=== PATIENT | male | born 1955 | race Caucasian/White ===

== ENCOUNTER 2022-07-27 13:52 | Inpatient (IN) | payer MEDICARE, MEDICAID ==
[2022-07-27] MEDS ORDERED: fentaNYL (PF) 50 MCG/ML 2 ML AMP IM STA (14:22)
[2022-07-27] MEDS ORDERED: DEXAMETHASONE SOD PHOSPHATE 10 MG/ML 1 ML VIAL IM STA (14:22)
--- NOTE | 2022-07-27 14:26 | ED ---
General Adult HPI <Papito Mantilla - Last Filed: 07/28/22 23:05> - General Source: patient, RN notes reviewed, old records reviewed Mode of arrival: EMS Limitations: no limitations - History of Present Illness -: month(s) (6) Location: left, right, lower extremity Radiation: distal Severity scale (1-10): 9 Quality: constant Consistency: constant Improves with: rest Worsens with: other (walking ) Associated Symptoms: denies other symptoms Treatments Prior to Arrival: other (Neurontin ) <Ramu Dozier - Last Filed: 08/05/22 08:04> - General Chief complaint: Extremity Problem,Nontraumatic Stated complaint: Neuropathy Time Seen by Provider: 07/27/22 14:08 - History of Present Illness Initial comments: A nontoxic appearing 67-year-old male presents via EMS with complaints of chronic bilateral lower extremity pain from neuropathy. Diagnosed with neuropathy 5 months ago and sees Dr. Flores in [facility]. He was prescribed Neurontin and Powell at that time which he states is not helping. Patient states he is also having suicidal thoughts and has no way to get home. States that if he is discharged he will just walk out in front of a car. He states he's overdosed 3 times as suicide attemp. Last attempt was 2 years ago. (Ramu Dozier) - Related Data Home Medications Medication Instructions Recorded Confirmed Albuterol Sulfate [Albuterol 2 puff PO RT-Q6H PRN 07/27/22 07/27/22 Sulfate Hfa] Apixaban [Eliquis] 5 mg PO BID 07/27/22 07/27/22 Atorvastatin [Lipitor] 40 mg PO HS 07/27/22 07/27/22 Cholestyramine/Aspartame 4 gm PO BID PRN 07/27/22 07/27/22 [Cholestyramine Light Packet] Furosemide [Lasix] 40 mg PO DAILY PRN 07/27/22 07/27/22 Gabapentin [Neurontin] 400 mg PO TID 07/27/22 07/27/22 HYDROcodone/APAP 5-325MG [[place] 1 tab PO Q8H PRN 07/27/22 07/27/22 5-325] Nitroglycerin Sl Tabs [Nitrostat] 0.4 mg SUBLINGUAL Q5M PRN 07/27/22 07/27/22 QUEtiapine FUMARATE [SEROquel] 200 mg PO HS 07/27/22 07/27/22 Tamsulosin HCl [Flomax] 0.4 mg PO HS 07/27/22 07/27/22 amLODIPine [Norvasc] 5 mg PO DAILY 07/27/22 07/27/22 carvediloL [Coreg] 6.25 mg PO BID 07/27/22 07/27/22 dilTIAZem HCL 30 mg PO TID 07/27/22 07/27/22 lisinopriL [Zestril] 2.5 mg PO DAILY 07/27/22 07/27/22 metOLazone [Zaroxolyn] 5 mg PO DAILY 07/27/22 07/27/22 Allergies Allergy/AdvReac Type Severity Reaction Status Date / Time sulfamethoxazole Allergy Swelling Verified 07/27/22 16:26 [From Bactrim] trimethoprim [From Bactrim] Allergy Swelling Verified 07/27/22 16:26 lithium AdvReac Severe Unknown Verified 08/04/22 13:55 bees Allergy Unknown Uncoded 07/27/22 16:26 Review of Systems ROS Other: All systems not noted in ROS Statement are negative. <Papito Mantilla - Last Filed: 07/28/22 23:05> ROS Other: All systems not noted in ROS Statement are negative. <Ramu Dozier - Last Filed: 08/05/22 08:04> ROS Statement: Those systems with pertinent positive or pertinent negative responses have been documented in the HPI. Past Medical History Past Medical History: Chest Pain / Angina, Heart Failure, COPD, CVA/TIA, Memory Impairment History of Any Multi-Drug Resistant Organisms: None Reported Past Surgical History: Heart Catheterization With Stent Past Psychological History: No Psychological Hx Reported Smoking Status: Current every day smoker Past Alcohol Use History: Rare Past Drug Use History: None Reported <Ramu Dozier - Last Filed: 08/05/22 08:04> General Exam Limitations: no limitations General appearance: alert, in no apparent distress Head exam: Present: atraumatic Eye exam: Absent: scleral icterus, conjunctival injection, periorbital swelling ENT exam: Present: mucous membranes moist Neck exam: Present: full ROM. Absent: tenderness, meningismus Respiratory exam: Present: normal lung sounds bilaterally. Absent: respiratory distress, accessory muscle use Cardiovascular Exam: Present: regular rate GI/Abdominal exam: Present: soft. Absent: distended, tenderness, rigid Extremities exam: Present: full ROM, normal capillary refill. Absent: tenderness, pedal edema, calf tenderness Back exam: Absent: tenderness, CVA tenderness (R), CVA tenderness (L) Neurological exam: Present: alert, oriented X3 Psychiatric exam: Present: depressed, suicidal ideation Skin exam: Present: warm, dry. Absent: cyanosis, diaphoretic, pallor <Riske,Ramu - Last Filed: 08/05/22 08:04> Course Vital Signs 07/27/22 07/27/22 07/27/22 14:01 22:02 23:26 Temperature 98 F Pulse Rate 94 85 98 Respiratory 18 18 18 Rate Blood Pressure 119/98 122/96 123/90 O2 Sat by Pulse 98 99 97 Oximetry 07/28/22 07/28/22 07/28/22 08:00 15:51 20:43 Temperature 97.7 F 97.4 F L 97.2 F L Pulse Rate 74 83 77 Respiratory 19 18 18 Rate Blood Pressure 117/77 103/73 117/81 O2 Sat by Pulse 95 96 97 Oximetry 07/29/22 07/29/22 07/29/22 01:29 03:19 04:05 Temperature Pulse Rate Respiratory 16 16 16 Rate Blood Pressure O2 Sat by Pulse Oximetry 07/29/22 07/29/22 07/29/22 05:05 08:44 10:00 Temperature 97.8 F Pulse Rate 75 99 Respiratory 16 18 20 Rate Blood Pressure 107/71 134/75 O2 Sat by Pulse 96 96 Oximetry 07/29/22 07/29/22 07/29/22 10:36 10:46 16:09 Temperature 97.7 F Pulse Rate 77 82 72 Respiratory 18 Rate Blood Pressure 106/68 O2 Sat by Pulse 97 Oximetry 07/29/22 07/29/22 07/30/22 18:10 21:07 07:17 Temperature Pulse Rate 75 70 Respiratory 18 18 18 Rate Blood Pressure 106/68 109/70 O2 Sat by Pulse 96 95 Oximetry 07/30/22 07/30/22 07/30/22 08:48 10:00 12:00 Temperature 97.6 F Pulse Rate 80 Respiratory 18 18 18 Rate Blood Pressure 104/71 O2 Sat by Pulse 96 Oximetry 07/30/22 07/30/22 07/30/22 13:00 14:30 15:47 Temperature 98.5 F Pulse Rate 72 Respiratory 18 18 18 Rate Blood Pressure 96/63 O2 Sat by Pulse 95 Oximetry 07/30/22 07/30/22 07/30/22 16:08 17:30 18:57 Temperature Pulse Rate Respiratory 18 18 18 Rate Blood Pressure 98/62 O2 Sat by Pulse Oximetry 07/30/22 07/30/22 07/30/22 20:00 21:00 22:00 Temperature 98.1 F Pulse Rate 77 Respiratory 16 16 16 Rate Blood Pressure 99/74 O2 Sat by Pulse 99 Oximetry 07/30/22 07/31/22 07/31/22 23:00 01:00 02:00 Temperature Pulse Rate Respiratory 16 16 16 Rate Blood Pressure O2 Sat by Pulse Oximetry 07/31/22 07/31/22 07/31/22 02:59 06:45 09:00 Temperature 98.4 F 97.8 F Pulse Rate 74 71 Respiratory 16 16 19 Rate Blood Pressure 114/71 105/64 O2 Sat by Pulse 97 95 Oximetry 07/31/22 08/01/22 08/01/22 20:00 04:15 10:27 Temperature 97.3 F L Pulse Rate 70 73 76 Respiratory 16 16 18 Rate Blood Pressure 104/69 98/67 104/72 O2 Sat by Pulse 94 L 97 96 Oximetry 08/01/22 12:14 Temperature Pulse Rate 65 Respiratory 18 Rate Blood Pressure 105/74 O2 Sat by Pulse 97 Oximetry Medical Decision Making - Lab Data Result diagrams: 07/28/22 19:16 07/28/22 19:16 <Papito Mantilla - Last Filed: 07/28/22 23:05> - Lab Data Result diagrams: 07/28/22 19:16 07/28/22 19:16 <Ramu Dozier - Last Filed: 08/05/22 08:04> - Medical Decision Making On 07/28/2022, the patient states that he developed some diffuse abdominal pain. He went into the bathroom and stuck his finger down his throat and this caused him to vomit. He denies any fevers or chills. He does have some mild nausea. He denies any diarrhea or constipation. His abdomen is only mildly tender upon palpation. There is no peritoneal signs. Abdomen is soft. The laboratory analysis ensued and this shows a mild leukocytosis. There is only minimal hyperkalemia. The computed tomography scan of the abdomen and pelvis shows diverticulosis but no evidence of diverticulitis. There may be a prominence of the adrenal gland. Overall, the exact cause of his abdominal pain is not definitively determined. He seemed to really like the morphine which was given IV and this did resolve all of his symptomatology. He is sleeping on recheck. It is still felt as though he is medically cleared for further evaluation by psychiatric team. No acute significant abdominal symptomatology is identified. There is no evidence of intra-abdominal pathology that would cause any reason to avoid further psychiatric treatment. (Papito Mantilla) Patient presents with chronic lower extremity pain, states is on Neurontin and Powell with no pain relief. He has had this pain for 5 years. Patient states he is also suicidal and if discharged will walk out in front of a car. EPS services to speak with patient. Dr. Mercer notified of patient. (Ramu Dozier) - Lab Data Lab Results 07/27/22 07/27/22 07/27/22 Range/Units 16:03 16:50 16:50 WBC 5.5 (3.8-10.6) k/uL RBC 4.44 (4.30-5.90) m/uL Hgb 14.5 (13.0-17.5) gm/dL Hct 43.3 (39.0-53.0) % MCV 97.7 (80.0-100.0) fL MCH 32.7 (25.0-35.0) pg MCHC 33.5 (31.0-37.0) g/dL RDW 13.6 (11.5-15.5) % Plt Count 151 (150-450) k/uL MPV 8.3 Neutrophils % 81 % Lymphocytes % 12 % Monocytes % 3 % Eosinophils % 3 % Basophils % 1 % Neutrophils # 4.4 (1.3-7.7) k/uL Lymphocytes # 0.7 L (1.0-4.8) k/uL Monocytes # 0.2 (0-1.0) k/uL Eosinophils # 0.2 (0-0.7) k/uL Basophils # 0.0 (0-0.2) k/uL Sodium (137-145) mmol/L Potassium (3.5-5.1) mmol/L Chloride (98-107) mmol/L Carbon Dioxide (22-30) mmol/L Anion Gap mmol/L BUN (9-20) mg/dL Creatinine (0.66-1.25) mg/dL Est GFR (CKD-EPI)AfAm (>60 ml/min/1.73 sqM) Est GFR (CKD-EPI)NonAf (>60 ml/min/1.73 sqM) Glucose (74-99) mg/dL Calcium (8.4-10.2) mg/dL Total Bilirubin (0.2-1.3) mg/dL AST (17-59) U/L ALT (4-49) U/L Alkaline Phosphatase (38-126) U/L Total Protein (6.3-8.2) g/dL Albumin (3.5-5.0) g/dL Lipase (23-300) U/L Urine Color Yellow Urine Appearance Clear (Clear) Urine pH 6.5 (5.0-8.0) Ur Specific [place] 1.012 (1.001-1.035) Urine Protein Negative (Negative) Urine Glucose (UA) Negative (Negative) Urine Ketones Negative (Negative) Urine Blood Negative (Negative) Urine Nitrite Negative (Negative) Urine Bilirubin Negative (Negative) Urine Urobilinogen 6.0 (<2.0) mg/dL Ur Leukocyte Esterase Negative (Negative) Urine Opiates Screen Not Detected (NotDetected) Ur Oxycodone Screen Not Detected (NotDetected) Urine Methadone Screen Not Detected (NotDetected) Ur Propoxyphene Screen Not Detected (NotDetected) Ur Barbiturates Screen Not Detected (NotDetected) U Tricyclic Antidepress Detected H (NotDetected) Ur Phencyclidine Scrn Not Detected (NotDetected) Ur Amphetamines Screen Not Detected (NotDetected) U Methamphetamines Scrn Not Detected (NotDetected) U Benzodiazepines Scrn Not Detected (NotDetected) Urine Cocaine Screen Not Detected (NotDetected) U Marijuana (THC) Screen Detected H (NotDetected) Coronavirus (PCR) Not Detected (Not Detectd) Influenza Type A (PCR) (Not Detectd) Influenza Type B (PCR) (Not Detectd) RSV (PCR) (Not Detectd) SARS-CoV-2 (PCR) (Not Detectd) 07/27/22 07/28/22 07/28/22 Range/Units 16:50 19:16 19:16 WBC 14.1 H (3.8-10.6) k/uL RBC 4.92 (4.30-5.90) m/uL Hgb 15.9 (13.0-17.5) gm/dL Hct 47.2 (39.0-53.0) % MCV 95.8 (80.0-100.0) fL MCH 32.3 (25.0-35.0) pg MCHC 33.7 (31.0-37.0) g/dL RDW 13.7 (11.5-15.5) % Plt Count 195 (150-450) k/uL MPV 8.6 Neutrophils % 86 % Lymphocytes % 9 % Monocytes % 3 % Eosinophils % 1 % Basophils % 0 % Neutrophils # 12.1 H (1.3-7.7) k/uL Lymphocytes # 1.3 (1.0-4.8) k/uL Monocytes # 0.5 (0-1.0) k/uL Eosinophils # 0.2 (0-0.7) k/uL Basophils # 0.0 (0-0.2) k/uL Sodium 138 136 L (137-145) mmol/L Potassium 4.5 5.3 H (3.5-5.1) mmol/L Chloride 109 H 106 (98-107) mmol/L Carbon Dioxide 21 L 19 L (22-30) mmol/L Anion Gap 8 11 mmol/L BUN 7 L 12 (9-20) mg/dL Creatinine 0.77 0.77 (0.66-1.25) mg/dL Est GFR (CKD-EPI)AfAm >90 >90 (>60 ml/min/1.73 sqM) Est GFR (CKD-EPI)NonAf >90 >90 (>60 ml/min/1.73 sqM) Glucose 191 H 125 H (74-99) mg/dL Calcium 9.0 9.4 (8.4-10.2) mg/dL Total Bilirubin 0.7 0.9 (0.2-1.3) mg/dL AST 60 H 49 (17-59) U/L ALT 68 H 66 H (4-49) U/L Alkaline Phosphatase 101 103 (38-126) U/L Total Protein 7.1 8.5 H (6.3-8.2) g/dL Albumin 3.8 4.6 (3.5-5.0) g/dL Lipase 60 (23-300) U/L Urine Color Urine Appearance (Clear) Urine pH (5.0-8.0) Ur Specific [place] (1.001-1.035) Urine Protein (Negative) Urine Glucose (UA) (Negative) Urine Ketones (Negative) Urine Blood (Negative) Urine Nitrite (Negative) Urine Bilirubin (Negative) Urine Urobilinogen (<2.0) mg/dL Ur Leukocyte Esterase (Negative) Urine Opiates Screen (NotDetected) Ur Oxycodone Screen (NotDetected) Urine Methadone Screen (NotDetected) Ur Propoxyphene Screen (NotDetected) Ur Barbiturates Screen (NotDetected) U Tricyclic Antidepress (NotDetected) Ur Phencyclidine Scrn (NotDetected) Ur Amphetamines Screen (NotDetected) U Methamphetamines Scrn (NotDetected) U Benzodiazepines Scrn (NotDetected) Urine Cocaine Screen (NotDetected) U Marijuana (THC) Screen (NotDetected) Coronavirus (PCR) (Not Detectd) Influenza Type A (PCR) (Not Detectd) Influenza Type B (PCR) (Not Detectd) RSV (PCR) (Not Detectd) SARS-CoV-2 (PCR) (Not Detectd) 07/29/22 07/29/22 Range/Units 08:53 10:02 WBC (3.8-10.6) k/uL RBC (4.30-5.90) m/uL Hgb (13.0-17.5) gm/dL Hct (39.0-53.0) % MCV (80.0-100.0) fL MCH (25.0-35.0) pg MCHC (31.0-37.0) g/dL RDW (11.5-15.5) % Plt Count (150-450) k/uL MPV Neutrophils % % Lymphocytes % % Monocytes % % Eosinophils % % Basophils % % Neutrophils # (1.3-7.7) k/uL Lymphocytes # (1.0-4.8) k/uL Monocytes # (0-1.0) k/uL Eosinophils # (0-0.7) k/uL Basophils # (0-0.2) k/uL Sodium (137-145) mmol/L Potassium (3.5-5.1) mmol/L Chloride (98-107) mmol/L Carbon Dioxide (22-30) mmol/L Anion Gap mmol/L BUN (9-20) mg/dL Creatinine (0.66-1.25) mg/dL Est GFR (CKD-EPI)AfAm (>60 ml/min/1.73 sqM) Est GFR (CKD-EPI)NonAf (>60 ml/min/1.73 sqM) Glucose (74-99) mg/dL Calcium (8.4-10.2) mg/dL Total Bilirubin (0.2-1.3) mg/dL AST (17-59) U/L ALT (4-49) U/L Alkaline Phosphatase (38-126) U/L Total Protein (6.3-8.2) g/dL Albumin (3.5-5.0) g/dL Lipase (23-300) U/L Urine Color Light Yellow Urine Appearance Clear (Clear) Urine pH 5.5 (5.0-8.0) Ur Specific [place] 1.010 (1.001-1.035) Urine Protein Negative (Negative) Urine Glucose (UA) Negative (Negative) Urine Ketones Negative (Negative) Urine Blood Negative (Negative) Urine Nitrite Negative (Negative) Urine Bilirubin Negative (Negative) Urine Urobilinogen <2.0 (<2.0) mg/dL Ur Leukocyte Esterase Negative (Negative) Urine Opiates Screen (NotDetected) Ur Oxycodone Screen (NotDetected) Urine Methadone Screen (NotDetected) Ur Propoxyphene Screen (NotDetected) Ur Barbiturates Screen (NotDetected) U Tricyclic Antidepress (NotDetected) Ur Phencyclidine Scrn (NotDetected) Ur Amphetamines Screen (NotDetected) U Methamphetamines Scrn (NotDetected) U Benzodiazepines Scrn (NotDetected) Urine Cocaine Screen (NotDetected) U Marijuana (THC) Screen (NotDetected) Coronavirus (PCR) (Not Detectd) Influenza Type A (PCR) Not Detected (Not Detectd) Influenza Type B (PCR) Not Detected (Not Detectd) RSV (PCR) Not Detected (Not Detectd) SARS-CoV-2 (PCR) Not Detected (Not Detectd) Disposition <Papito Mantilla - Last Filed: 07/28/22 23:05> Is patient prescribed a controlled substance at d/c from ED?: No Decision Date: 07/27/22 Decision Time: 18:00 <Ramu Dozier - Last Filed: 08/05/22 08:04> Clinical Impression: Suicidal ideation, Abdominal pain Disposition: OTHER INSTITUTION NOT DEFINED
[2022-07-27 17:32] LABS: Basophils % (A) 1 %; Eosinophils # (A) 0.2 k/uL (0-0.7); Eosinophils % (A) 3 %; HCT 43.3 % (39.0-53.0); HGB 14.5 gm/dL (13.0-17.5); Lymphocytes # (A) 0.7 k/uL (1.0-4.8); Lymphocytes % (A) 12 %; MCH 32.7 pg (25.0-35.0); MCHC 33.5 g/dL (31.0-37.0); MCV 97.7 fL (80.0-100.0); Mean Platelet Volume 8.3; Monocytes # (A) 0.2 k/uL (0-1.0); Monocytes % (A) 3 %; Neutrophils # (A) 4.4 k/uL (1.3-7.7); Neutrophils % (A) 81 %; Platelet Count 151 k/uL (150-450); RBC 4.44 m/uL (4.30-5.90); RDW 13.6 % (11.5-15.5); WBC 5.5 k/uL (3.8-10.6)
[2022-07-27 17:40] LABS: ALT 68 U/L (4-49); AST 60 U/L (17-59); African American GFR (CKD) >90 (>60 ml/min/1.73 sqM); Albumin 3.8 g/dL (3.5-5.0); Alkaline Phosphatase 101 U/L (38-126); Anion Gap 8 mmol/L; Blood Urea Nitrogen 7 mg/dL (9-20); Carbon Dioxide 21 mmol/L (22-30); Chloride 109 mmol/L (98-107); Glucose 191 mg/dL (74-99); Non-African American GFR(CKD) >90 (>60 ml/min/1.73 sqM); Potassium 4.5 mmol/L (3.5-5.1); Sodium 138 mmol/L (137-145); Total Bilirubin 0.7 mg/dL (0.2-1.3); Total Protein 7.1 g/dL (6.3-8.2)
[2022-07-27 17:47] LABS: Appearance,Urine Clear (Clear); Bilirubin,Urine Negative (Negative); Blood,Urine Negative (Negative); Color,Urine Yellow; Glucose,Urine (UA) Negative (Negative); Ketones,Urine Negative (Negative); Leukocyte Esterase,Urine Negative (Negative); Nitrite,Urine Negative (Negative); PH, Urine 6.5 (5.0-8.0); Protein,Urine Negative (Negative); Specific Gravity,Urine 1.012 (1.001-1.035)
[2022-07-27 18:01] LABS: Amphetamine Screen,Urine Not Detected (NotDetected); Barbiturate Screen,Urine Not Detected (NotDetected); Benzodiazepines Screen,Urine Not Detected (NotDetected); Cocaine Screen,Urine Not Detected (NotDetected); Methadone Screen, Urine Not Detected (NotDetected); Opiate Screen,Urine Not Detected (NotDetected); Oxycodone Screen, Urine Not Detected (NotDetected); Phencyclidine Screen,Urine Not Detected (NotDetected); Tricyclic Antidepressant,Urine Detected (NotDetected); Urn Cannabinoid Scrn Detected (NotDetected)
[2022-07-27] MEDS ORDERED: FUROSEMIDE 40 MG TAB PO PRN (18:07)
[2022-07-27] MEDS ORDERED: ALBUTEROL NEBULIZED 2.5 MG/3 ML INHALATION PRN (18:07)
[2022-07-27] MEDS: APIXABAN 5 MG TAB PO SCH (22:11)
[2022-07-27] MEDS: HYDROcodone/APAP 5-325MG 1 EACH TAB PO PRN (22:12)
[2022-07-27] MEDS: TAMSULOSIN 0.4 MG CAP.ER.24H PO SCH (22:13)
[2022-07-27] MEDS: QUEtiapine 200 MG TAB PO SCH (22:13)
[2022-07-27] MEDS: GABAPENTIN 400 MG CAP PO SCH (22:14)
[2022-07-27] MEDS: ATORVASTATIN 40 MG TAB PO SCH (22:15)
[2022-07-27] MEDS: carvediloL 6.25 MG TAB PO SCH (22:15)
[2022-07-27] MEDS: DILTIAZEM ORAL 30 MG TAB PO SCH (22:15)
[2022-07-28] MEDS: HYDROcodone/APAP 5-325MG 1 EACH TAB PO PRN ×2 (06:19→16:41)
[2022-07-28] MEDS: carvediloL 6.25 MG TAB PO SCH ×2 (07:28→18:56)
[2022-07-28] MEDS: amLODIPine 5 MG TAB PO SCH (08:32)
[2022-07-28] MEDS: DILTIAZEM ORAL 30 MG TAB PO SCH ×3 (08:33→20:44)
[2022-07-28] MEDS: GABAPENTIN 400 MG CAP PO SCH ×3 (08:33→20:44)
[2022-07-28] MEDS: APIXABAN 5 MG TAB PO SCH ×2 (08:33→20:44)
[2022-07-28] MEDS: metOLazone 5 MG TAB PO SCH (08:33)
[2022-07-28] MEDS ORDERED: SODIUM CHLORIDE 0.9% 1,000 ML IV STA ×2 (18:36)
[2022-07-28] MEDS ORDERED: ONDANSETRON 4 MG/2 ML VIAL IVP STA (18:36)
[2022-07-28] MEDS ORDERED: MORPHINE SULFATE 4 MG/ML SYRINGE IV STA (18:37)
[2022-07-28 19:24] LABS: Basophils % (A) 0 %; Eosinophils # (A) 0.2 k/uL (0-0.7); Eosinophils % (A) 1 %; HCT 47.2 % (39.0-53.0); HGB 15.9 gm/dL (13.0-17.5); Lymphocytes # (A) 1.3 k/uL (1.0-4.8); Lymphocytes % (A) 9 %; MCH 32.3 pg (25.0-35.0); MCHC 33.7 g/dL (31.0-37.0); MCV 95.8 fL (80.0-100.0); Mean Platelet Volume 8.6; Monocytes # (A) 0.5 k/uL (0-1.0); Monocytes % (A) 3 %; Neutrophils # (A) 12.1 k/uL (1.3-7.7); Neutrophils % (A) 86 %; Platelet Count 195 k/uL (150-450); RBC 4.92 m/uL (4.30-5.90); RDW 13.7 % (11.5-15.5); WBC 14.1 k/uL (3.8-10.6)
[2022-07-28 19:33] LABS: ALT 66 U/L (4-49); AST 49 U/L (17-59); African American GFR (CKD) >90 (>60 ml/min/1.73 sqM); Albumin 4.6 g/dL (3.5-5.0); Alkaline Phosphatase 103 U/L (38-126); Anion Gap 11 mmol/L; Blood Urea Nitrogen 12 mg/dL (9-20); Calcium 9.4 mg/dL (8.4-10.2); Carbon Dioxide 19 mmol/L (22-30); Chloride 106 mmol/L (98-107); Glucose 125 mg/dL (74-99); Lipase 60 U/L (23-300); Non-African American GFR(CKD) >90 (>60 ml/min/1.73 sqM); Potassium 5.3 mmol/L (3.5-5.1); Sodium 136 mmol/L (137-145); Total Bilirubin 0.9 mg/dL (0.2-1.3); Total Protein 8.5 g/dL (6.3-8.2)
[2022-07-28] MEDS: ATORVASTATIN 40 MG TAB PO SCH (20:45)
[2022-07-28] MEDS: TAMSULOSIN 0.4 MG CAP.ER.24H PO SCH (20:45)
[2022-07-28] MEDS: QUEtiapine 200 MG TAB PO SCH (20:45)
--- NOTE | 2022-07-28 21:38 | CT ---
EXAMINATION TYPE: CT abdomen pelvis w con DATE OF EXAM: 07/28/2022 COMPARISON: . INDICATION: abdominal pain, acute, nonlocalized DLP: 1895.9 mGycm, Automated exposure control for dose reduction was used. CONTRAST: 100 mL of Isovue 300. Study performed without Oral Contrast TECHNIQUE: Axial images were obtained from above the diaphragm to the pubic rami in the axial plane a t 5 mm thick sections. Reconstructed images are reviewed on the computer in the coronal plane. FINDINGS: Limited CT sections are obtained the lung bases. Mild compressive atelectasis within the right lung base. CT ABDOMEN: Liver: Normal Spleen: Normal Pancreas: Atrophic Adrenal glands: Left adrenal gland is mildly prominent 1.5 cm. Gallbladder: Normal Kidneys: No masses are evident. No hydronephrosis is present. No cysts are present. Aorta: Vascular calcification is within the aorta. Inferior vena cava: Normal. CT PELVIS: Loops of bowel within the abdomen and pelvis are normal. The study is performed without oral cont rast limiting bowel evaluation. Scattered diverticuli within the proximal and mid sigmoid colon. No a djacent inflammatory change to suggest acute diverticulitis is evident. Appendix: Normal as visualized. Urinary bladder: Normal. Genitourinary structures: Prostate is prominent Osseous structures: No suspicious lytic or sclerotic lesions. IMPRESSIONS: 1. Diverticulosis without acute diverticulitis. 2. Mild prominence of left adrenal gland
[2022-07-29] MEDS ORDERED: CALCIUM CARBONATE 500 MG CHEWABLE PO ONE (04:35)
[2022-07-29] MEDS: HYDROcodone/APAP 5-325MG 1 EACH TAB PO PRN ×3 (04:37→23:15)
[2022-07-29] MEDS: APIXABAN 5 MG TAB PO SCH ×2 (08:47→21:05)
[2022-07-29] MEDS: GABAPENTIN 400 MG CAP PO SCH ×3 (08:47→21:05)
[2022-07-29] MEDS: carvediloL 6.25 MG TAB PO SCH ×2 (09:01→16:12)
[2022-07-29] MEDS: amLODIPine 5 MG TAB PO SCH (09:02)
[2022-07-29] MEDS: DILTIAZEM ORAL 30 MG TAB PO SCH ×3 (09:02→21:05)
[2022-07-29] MEDS: metOLazone 5 MG TAB PO SCH (09:02)
[2022-07-29 10:10] LABS: Appearance,Urine Clear (Clear); Bilirubin,Urine Negative (Negative); Blood,Urine Negative (Negative); Color,Urine Light Yellow; Glucose,Urine (UA) Negative (Negative); Ketones,Urine Negative (Negative); Leukocyte Esterase,Urine Negative (Negative); Nitrite,Urine Negative (Negative); PH, Urine 5.5 (5.0-8.0); Protein,Urine Negative (Negative); Urobilinogen,Urine <2.0 mg/dL (<2.0)
[2022-07-29] MEDS: QUEtiapine 200 MG TAB PO SCH (21:05)
[2022-07-29] MEDS: TAMSULOSIN 0.4 MG CAP.ER.24H PO SCH (21:05)
[2022-07-29] MEDS: ATORVASTATIN 40 MG TAB PO SCH (21:05)
[2022-07-30] MEDS ORDERED: ALBUTEROL NEBULIZED 2.5 MG/3 ML INHALATION PRN (08:00)
[2022-07-30] MEDS: DILTIAZEM ORAL 30 MG TAB PO SCH ×3 (08:50→21:31)
[2022-07-30] MEDS: carvediloL 6.25 MG TAB PO SCH ×4 (08:50→16:33)
[2022-07-30] MEDS: APIXABAN 5 MG TAB PO SCH ×2 (08:51→20:25)
[2022-07-30] MEDS: metOLazone 5 MG TAB PO SCH (08:51)
[2022-07-30] MEDS: GABAPENTIN 400 MG CAP PO SCH ×3 (08:51→21:31)
[2022-07-30] MEDS: HYDROcodone/APAP 5-325MG 1 EACH TAB PO PRN ×2 (08:52→16:11)
[2022-07-30] MEDS: amLODIPine 5 MG TAB PO SCH (08:55)
[2022-07-30] MEDS ORDERED: metOLazone 5 MG TAB PO SCH (09:00)
[2022-07-30] MEDS: ATORVASTATIN 40 MG TAB PO SCH (20:25)
[2022-07-30] MEDS: QUEtiapine 200 MG TAB PO SCH (20:25)
[2022-07-30] MEDS: TAMSULOSIN 0.4 MG CAP.ER.24H PO SCH (20:25)
[2022-07-31] MEDS: carvediloL 6.25 MG TAB PO SCH ×2 (06:53→17:38)
[2022-07-31] MEDS: amLODIPine 5 MG TAB PO SCH (09:45)
[2022-07-31] MEDS: GABAPENTIN 400 MG CAP PO SCH ×3 (09:45→21:31)
[2022-07-31] MEDS: HYDROcodone/APAP 5-325MG 1 EACH TAB PO PRN (09:46)
[2022-07-31] MEDS: APIXABAN 5 MG TAB PO SCH ×2 (09:46→21:32)
[2022-07-31] MEDS: DILTIAZEM ORAL 30 MG TAB PO SCH ×3 (09:47→21:36)
[2022-07-31] MEDS: metOLazone 5 MG TAB PO SCH (10:27)
[2022-07-31] MEDS: ATORVASTATIN 40 MG TAB PO SCH (21:34)
[2022-07-31] MEDS: QUEtiapine 200 MG TAB PO SCH (21:34)
[2022-07-31] MEDS: TAMSULOSIN 0.4 MG CAP.ER.24H PO SCH (21:34)
[2022-08-01] MEDS: HYDROcodone/APAP 5-325MG 1 EACH TAB PO PRN (10:36)
[2022-08-01] MEDS: carvediloL 6.25 MG TAB PO SCH ×2 (10:37→16:54)
[2022-08-01] MEDS: DILTIAZEM ORAL 30 MG TAB PO SCH ×2 (10:37→16:52)
[2022-08-01] MEDS: amLODIPine 5 MG TAB PO SCH (10:37)
[2022-08-01] MEDS: APIXABAN 5 MG TAB PO SCH ×2 (10:37→20:08)
[2022-08-01] MEDS: GABAPENTIN 400 MG CAP PO SCH ×3 (10:37→20:09)
[2022-08-01] MEDS: metOLazone 5 MG TAB PO SCH (10:39)
[2022-08-01] MEDS ORDERED: NITROGLYCERIN SL TABS 0.4 MG TAB SUBLINGUAL PRN (12:55)
[2022-08-01] MEDS ORDERED: CHOLESTYRAMINE (WITH SUGAR) 4 GM PACKET PO PRN (12:55)
[2022-08-01] MEDS ORDERED: LORazepam 1 MG TAB PO PRN (12:56)
[2022-08-01] MEDS ORDERED: MAGNESIUM HYDROXIDE 2,400 MG/10 ML CUP PO PRN (12:56)
[2022-08-01] MEDS ORDERED: ACETAMINOPHEN TAB 325 MG TAB PO PRN (12:56)
[2022-08-01] MEDS ORDERED: MAG HYDROX/AL HYDROX/SIMETH 30 ML CUP PO PRN (12:56)
[2022-08-01] MEDS ORDERED: LORazepam 2 MG/ML INJ IM PRN (12:57)
--- NOTE | 2022-08-01 14:51 | P.MDCNMH ---
History of Present Illness H&P Date: 08/01/22 Chief Complaint: med management Patient is a 67-year-old history of hypertension, dyslipidemia, neuropathy, atrial fibrillation on Eliquis, CHF, unsure EF presented for depression. He claims that he has been taking all his medications. He denies any chest pain, shortness of breath. He occasionally has orthopnea as well as lower extremity swelling. However, he has Lasix at home which he uses as needed. He is also complaining of some abdominal tenderness, and has experienced some nausea and vomiting over the last 4 days. He denies any diarrhea or constipation. He denies any urinary complaints. He drinks occasionally, smokes about 6 cigarettes a day, and uses cocaine occasionally. In the ED, his vital signs were within normal limits. He had a CT abdomen and pelvis which was negative for any acute process. It showed diverticulosis without diverticulitis, and mild prominence of the left adrenal gland. Initial laboratory workup was mostly negative except for bicarb of 21, mild transaminitis, urine tox positive for TCA and marijuana. Patient seen and examined at bedside. Pertinent positives and negatives as discussed in HPI, a complete review of systems was performed and all other systems are negative. Vital signs reviewed General: nontoxic, no distress, appears at stated age Derm: warm, dry Head: atraumatic, normocephalic, symmetric Eyes: EOMI, no lid lag, anicteric sclera, pupils equal round reactive to light ENT: Nose and ears atraumatic Neck: No thyromegaly, supple Mouth: no lip lesion, mucus membranes moist Cardiovascular: S1S2 reg, no murmur, no edema Lungs: clear to auscultation bilateral, no rhonchi, no rales, no wheeze, no accessory muscle use Abdominal: soft, nontender to palpation, no guarding, no appreciable organomegaly Ext: no gross muscle atrophy, muscle strength muscle strength 5 out of 5 in all 4 extremities, no contractures Neuro: CN II-XII grossly intact Psych: Alert, oriented, appropriate affect Assessment/Plan: Depression -Management per psychiatry Abdominal pain -Negative CT abdomen and pelvis -Continue to monitor vitals Leukocytosis -Likely reactive Polysubstance use Nicotine dependence -Counseled regarding cessation Chronic medical problems: CHF, unsure EF, not in exacerbation Hypertension Dyslipidemia Neuropathy Chronic Atrial fibrillation History of CAD -Continue home medications Thank you for allowing us to participate in the care of this pleasant patient. Do not hesitate to contact us with questions. Someone can be reached from the [facility] hospitalist group all hours of the day at [phone] or via [employer]. Past Medical History Past Medical History: Chest Pain / Angina, Heart Failure, CVA/TIA, Hyperlipidemia, Hypertension Additional Past Medical History / Comment(s): pt reports last CVA was in 2019. History of Any Multi-Drug Resistant Organisms: None Reported Past Surgical History: Coronary Bypass/CABG, Heart Catheterization With Stent, Pacemaker Additional Past Surgical History / Comment(s): pt reports pacemaker placed in 2019 and triple bypass in 2018 Past Anesthesia/Blood Transfusion Reactions: No Reported Reaction Date of Last Stent Placement:: 2014 Type of Cardiac Device: Permanent Pacemaker Device Placement Date:: 2019 Past Psychological History: Depression Smoking Status: Current every day smoker Past Alcohol Use History: Rare Past Drug Use History: Marijuana Additional Drug Use History / Comment(s): pt reports daily marijuana use - "all day, everyday." Medications and Allergies Home Medications Medication Instructions Recorded Confirmed Type Albuterol Sulfate [Albuterol 2 puff PO RT-Q6H PRN 07/27/22 07/27/22 History Sulfate Hfa] Apixaban [Eliquis] 5 mg PO BID 07/27/22 07/27/22 History Atorvastatin [Lipitor] 40 mg PO HS 07/27/22 07/27/22 History Cholestyramine/Aspartame 4 gm PO BID PRN 07/27/22 07/27/22 History [Cholestyramine Light Packet] Furosemide [Lasix] 40 mg PO DAILY PRN 07/27/22 07/27/22 History Gabapentin [Neurontin] 400 mg PO TID 07/27/22 07/27/22 History HYDROcodone/APAP 5-325MG [[place] 1 tab PO Q8H PRN 07/27/22 07/27/22 History 5-325] Nitroglycerin Sl Tabs [Nitrostat] 0.4 mg SUBLINGUAL Q5M PRN 07/27/22 07/27/22 History QUEtiapine FUMARATE [SEROquel] 200 mg PO HS 07/27/22 07/27/22 History Tamsulosin HCl [Flomax] 0.4 mg PO HS 07/27/22 07/27/22 History amLODIPine [Norvasc] 5 mg PO DAILY 07/27/22 07/27/22 History carvediloL [Coreg] 6.25 mg PO BID 07/27/22 07/27/22 History dilTIAZem HCL 30 mg PO TID 07/27/22 07/27/22 History lisinopriL [Zestril] 2.5 mg PO DAILY 07/27/22 07/27/22 History metOLazone [Zaroxolyn] 5 mg PO DAILY 07/27/22 07/27/22 History Allergies Allergy/AdvReac Type Severity Reaction Status Date / Time sulfamethoxazole Allergy Swelling Verified 07/27/22 16:26 [From Bactrim] trimethoprim [From Bactrim] Allergy Swelling Verified 07/27/22 16:26 bees Allergy Unknown Uncoded 07/27/22 16:26 Physical Exam Vitals: Vital Signs Temp Pulse Pulse Resp BP BP Pulse Ox 08/01/22 13:45 97.3 F L 71 22 99/66 98 08/01/22 12:14 65 18 105/74 97 08/01/22 10:27 76 18 104/72 96 08/01/22 04:15 97.3 F L 73 16 98/67 97 07/31/22 20:00 70 16 104/69 94 L Intake and Output 07/31/22 08/01/22 08/01/22 22:59 06:59 14:59 Other: Weight 109.458 kg Cranial Nerve Examination - Cranial Nerves Cranial Nerve II- Optic: Intact Cranial Nerve III- Oculomotor: Intact Cranial Nerve IV- Trochlear: Intact Cranial Nerve V- Trigeminal: Intact Cranial Nerve - Abducens: Intact Cranial Nerve VII- Facial: Intact Cranial Nerve VIII- Auditory: Intact Cranial Nerve IX- Glossopharyngeal: Intact Cranial Nerve X- Vagus: Intact Cranial Nerve XI- Accessory: Intact Cranial Nerve XII- Hypoglossal: Intact Results CBC & Chem 7: 07/28/22 19:16 07/28/22 19:16
[2022-08-01] MEDS: TAMSULOSIN 0.4 MG CAP.ER.24H PO SCH (20:08)
[2022-08-01] MEDS: ATORVASTATIN 40 MG TAB PO SCH (20:08)
[2022-08-01] MEDS: QUEtiapine 200 MG TAB PO SCH (20:08)
[2022-08-02] MEDS: DILTIAZEM ORAL 30 MG TAB PO SCH ×3 (00:03→16:47)
[2022-08-02] MEDS: HYDROcodone/APAP 5-325MG 1 EACH TAB PO PRN ×3 (00:14→19:58)
--- NOTE | 2022-08-02 00:43 | HP ---
HISTORY AND PHYSICAL IDENTIFYING DATA: The patient is a 67-year-old male, he resides with a housemate. He presented to the ED for evaluation. CHIEF COMPLAINT: The patient stated in the ED that he was suicidal. He had no way to get home and said that if he was discharged, he would walk out in front of a car. HISTORY OF PRESENTING ILLNESS: The patient was the primary source of information that only provided a limited amount of history about his current situation as well as past mental health issues. The patient states that currently he has been having increasing problems with depression. He was vague about particulars of that. He says he lives with another person, though it does not sound like the two of them have a cordial relationship. He says that the woman is 25 years younger. He says they have continuous conflicts about various issues around the house. He has been increasingly depressed in that situation, though also around the idea that he has had progressive problems with neuropathy that are making it difficult for him to even ambulate little own function in the way that he thinks he should be able to. He said that he has had a long history of where he works long hours and feels that he had been very productive in his life. He says he sees all of that as having gone away. He said that he has had a psychiatric hospitalization "a while ago." He did not give specifics. He indicated that he may have been diagnosed with bipolar disorder where he would have episodes of high energy, decreased need for sleep, and ability to function in a wide range of activities. 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 He said he would work from early in the morning to late at night and never had any problem with that. He also notes that he had legal issues with cocaine possession. He ended up serving 9 years in jail with his release in 1998. He states that he has not been using any cocaine or other hard drugs. He does not drink. He does say that he smokes marijuana quite a bit on a daily basis. He said, "that is about all I do is sit at home and smoke marijuana to relax myself." He notes that he sleeps poorly, though he is on Seroquel 200 mg a day. He says as long as he takes a Seroquel, he sleeps okay and if he does not take the Seroquel, he does not sleep at all. He states that he has had depressed mood with loss of motivation, energy, and interest. He does not identify any symptoms of psychosis, neither hallucinations nor delusions. He does not identify significant anxiety issues. He has not had problems with panic. When I asked him about past trauma or posttraumatic issues, he stated "there might be things out there, but it does not matter right now." In regard to psychotropic medications, he is on Seroquel 200 mg at bedtime. In addition, he said he has been taking Cymbalta. He thought he was taking 60 mg twice a day, though pharmacy records indicate that his last refill of Cymbalta was 05/26 when he received 30 tablets of Cymbalta 60 mg. He said he thought he was taking Cymbalta twice a day and thought he had been taking it up to the present, though said "maybe I'm not certain about that." He acknowledges a lot of distress with the main issue being his struggles with mobility from neuropathy. He is admitted for further evaluation. SUBSTANCE USE HISTORY: The patient has continuous and current use of marijuana. He has past substance use issues as noted above. PAST MEDICAL HISTORY: The patient's primary complaint currently is peripheral neuropathy. He has a history of angina, heart failure, COPD, CVA/TIA, and memory impairment. FAMILY AND SOCIAL HISTORY: The patient did not provide much information other than what is noted in the HPI. MENTAL STATUS EXAMINATION: The patient walks slowly from his room to the interview room. He walked with a cautious and constricted gait. He gave fair eye contact. He was somewhat restless. He answered questions with brief responses. His thoughts were clear, at times he tended to give vague responses. He did make some spontaneous comments and was somewhat interactive. His affect was anxious. His mood depressed. He was significantly distressed. There was no indication for thought disorder. He was not voicing thoughts of harm at the time of the interview and said he does not have any plans or intent with his being on the psychiatric unit. On cognitive exam, he was oriented and alert. He could give 2/3 objects in 4 minutes. He could give the days of the week in reverse order without difficulty. He knew the president and past president. He declined to answer any other questions in that regard. PHYSICAL EXAMINATION: As per medical consultation. ASSESSMENT: This 67-year-old male is diagnosed with major depression. He may have underlying bipolar disorder, though it was difficult to get a clear history from the patient to be able to clearly delineate bipolar disorder from depression. He does appear to have some significant psychosocial stressors. Social supports are uncertain and may be quite limited. DIAGNOSES: 1. Major depression, chronic and recurrent, severe, without psychotic features. 2. Rule out bipolar affect disorder. 3. Marijuana dependence. 4. History of heart failure. 5. Chronic obstructive pulmonary disease. 6. Cerebrovascular accident/transient ischemic attack. 7. Angina. 8. Peripheral neuropathy. RECOMMENDATIONS: The patient will be admitted for comprehensive medical, psychiatric and psychosocial evaluation. We will engage the patient in individual and group therapeutic activities. At this point, I will continue the patient on Cymbalta 60 mg a day. We discussed that there might be indications for titrating up. I also reviewed the issue that if he does have a diagnosis of bipolar disorder, we will need to monitor for concerns that an antidepressant may destabilize his bipolar condition. On the other hand, he also was on Seroquel which he says he takes for sleep, though he is on 200 mg a day, which is the indicated strengths for use of Seroquel for bipolar depression, thus Seroquel may be of benefit to help ameliorate any issues that could arise from an antidepressant in the phase of possible bipolar disorder. We do need to broaden our understanding in regard to psychosocial issues. I briefly reviewed medication issues with the patient, though kept it limited as the patient was not too inclined to engage in the conversation. We will focus on stabilization and discharge planning. MMODL / IJN: [id number] /
[2022-08-02] MEDS: APIXABAN 5 MG TAB PO SCH ×2 (07:59→20:00)
[2022-08-02] MEDS: metOLazone 5 MG TAB PO SCH (07:59)
[2022-08-02] MEDS: GABAPENTIN 400 MG CAP PO SCH ×3 (07:59→20:00)
[2022-08-02] MEDS: carvediloL 6.25 MG TAB PO SCH ×2 (07:59→16:42)
[2022-08-02] MEDS: amLODIPine 5 MG TAB PO SCH (07:59)
--- NOTE | 2022-08-02 13:03 | P.PN ---
Progress Note - Text Progress Note Date: 08/02/22 Interval History: Patient was seen sitting in his room on his bed and was directable and agreeable to speak with racebook writer. Patient appeared to have a depressed affect today. He was mildly irritable as well during conversation. He states that he feels that he is not getting the adequate help that he needs. He states that he has been feeling severely depressed and had not been started on medications for it. He claims that his sleep was "on and off" since coming into the hospital. He states that his appetite is also not great. He claims that he does not feel much motivation to go to groups however was encouraged to do so. He was agreeable to take the Cymbalta. He states that he has been dealing with significant amount of pain in his feet causing him to have difficulty ambulating. He states that he also feels mildly dizzy when he walks and we spoke about his blood pressure and need for possibly cutting down on medications. At this time patient denies any current suicidal or homical ideations, intent or plan. Patient denies any auditory, visual hallucinations and denies any paranoia or delusions. Patient denies any side effects from the medications and has been compliant with meds. Mental Status Exam: General Appearance: Patient appears to be tall, longer hair sena, stated age is alert, difficult to engage, uncooperative at times. Marginal hygiene. Behavior: Patient is calmly seated without any agitated behavior. Blunted. Speech: Patient's speech is fluent and nonpressured. [place] and monotone. Mood/Affect: Mood is depressed, affect is congruent and constricted. Suicidality/Homicidality: Patient denies having any suicidal or homicidal ideation intent or plan. Perceptions: Patient denies any visual hallucinations and denies any auditory hallucinations Though content/process: There is no evidence of any delusional thought content and thought process is linear and goal-directed. [place]. Vague. Memory and concentration: AOX3, grossly intact for the purposes of this session Judgment and insight: Poor Assessment Major depressive disorder, without psychotic features, rule out bipolar depression Cannabis use disorder mild Plan: -Patient continues to meet criteria for inpatient psychiatric admission for symptom stabilization and safety. Patient has signed adult voluntary form and was placed in patient's chart. -Medications: Continue with Seroquel 200 mg daily at bedtime for mood stabilization/insomnia, Cymbalta 30 mg daily for mood/anxiety/pain. -When necessary Ativan and Haldol for agitation/aggression. -NRT -not needed as patient does not smoke -SW on board for discharge planning. Encouraged the patient to participate in milieu. Patient currently wants to relocate to the area and go to a [facility], social work professor looking into this.
[2022-08-02] MEDS: DULoxetine HCL 30 MG CAPSULE.DR PO SCH (13:21)
[2022-08-02 16:26] LABS: Chol/HDL Ratio 2.03 Ratio
[2022-08-02] MEDS: DILTIAZEM ORAL 60 MG TAB PO SCH ×2 (16:42→19:59)
[2022-08-02] MEDS: ATORVASTATIN 40 MG TAB PO SCH (19:59)
[2022-08-02] MEDS: TAMSULOSIN 0.4 MG CAP.ER.24H PO SCH (19:59)
[2022-08-02] MEDS: QUEtiapine 200 MG TAB PO SCH (20:00)
[2022-08-03] MEDS: DULoxetine HCL 30 MG CAPSULE.DR PO SCH ×2 (07:56→20:34)
[2022-08-03] MEDS: GABAPENTIN 400 MG CAP PO SCH ×3 (07:56→20:36)
[2022-08-03] MEDS: amLODIPine 5 MG TAB PO SCH (07:56)
[2022-08-03] MEDS: APIXABAN 5 MG TAB PO SCH ×2 (07:56→20:34)
[2022-08-03] MEDS: carvediloL 6.25 MG TAB PO SCH ×2 (07:56→18:02)
[2022-08-03] MEDS: metOLazone 5 MG TAB PO SCH (07:57)
[2022-08-03] MEDS: HYDROcodone/APAP 5-325MG 1 EACH TAB PO PRN ×2 (07:58→15:04)
[2022-08-03] MEDS: DILTIAZEM ORAL 60 MG TAB PO SCH ×3 (07:59→20:34)
[2022-08-03] MEDS ORDERED: LORazepam 0.5 MG TAB PO PRN (11:20)
--- NOTE | 2022-08-03 11:23 | P.PN ---
Progress Note - Text Progress Note Date: 08/03/22 Interval History: Patient was seen wandering the hallways with a walker and was agreeable writer editor today. He continues to have a depressed affect and continues to ruminate on his depressive thoughts. He claims that he does not want to go back to his previous room and board due to his landlord that was renting out his room. He states that "she's too crazy" and was fairly vague about why he wants to stay in the area. He claims that "if I go to a [place] [facility] all just shoot myself". He cla ims that he has not thought much benefit from the medication at this point. He states that he was only able to sleep about 2 hours last night. He continues to state that he has pain in his feet and dizziness at times. His blood pressure continues to remain fairly low. We spoke about the medication options. He claims that he has a fair appetite. He has not been showing much interest in going to groups. Continues to endorse anxiety and depression. At this time patient denies any homical ideations, intent or plan. He does state that he has suicidal thoughts however no intent or plan. Patient denies any auditory, visual hallucinations and denies any paranoia or delusions. Patient denies any side effects from the medications and has been compliant with meds. Mental Status Exam: General Appearance: Patient appears to be tall, longer hair sena, stated age is alert, difficult to engage, more cooperative today. Marginal hygiene. Behavior: Patient is calmly seated without any agitated behavior. Blunted. Speech: Patient's speech is fluent and nonpressured. [place] and monotone. Mood/Affect: Mood is depressed, affect is congruent and constricted. Suicidality/Homicidality: Patient denies having any homicidal ideation intent or plan. He admits to suicidal thoughts, no intent or plan. Perceptions: Patient denies any visual hallucinations and denies any auditory hallucinations Though content/process: There is no evidence of any delusional thought content and thought process is linear and goal-directed. [place]. Vague. Memory and concentration: AOX3, grossly intact for the purposes of this session Judgment and insight: Poor, improving mildly. Assessment Major depressive disorder, without psychotic features, rule out bipolar depression Cannabis use disorder mild Plan: -Patient continues to meet criteria for inpatient psychiatric admission for symptom stabilization and safety. Patient has signed adult voluntary form and was placed in patient's chart. -Medications: Continue with Seroquel 200 mg daily at bedtime for mood stabilization/insomnia, increase Cymbalta 30 mg BID for mood/anxiety/pain. added remeron 15 mg qhs for mood/insomnia/appetite. -When necessary Ativan and Haldol for agitation/aggression. -NRT -not needed as patient does not smoke -SW on board for discharge planning. Encouraged the patient to participate in milieu. Patient currently wants to relocate to the area and go to a [facility] or room and board, social and political studies professor looking into this. likely discharge in 2-3 days.
[2022-08-03] MEDS: DILTIAZEM ORAL 30 MG TAB PO SCH (15:03)
[2022-08-03] MEDS: MIRTAZAPINE 15 MG TAB PO SCH (20:34)
[2022-08-03] MEDS: ATORVASTATIN 40 MG TAB PO SCH (20:34)
[2022-08-03] MEDS: TAMSULOSIN 0.4 MG CAP.ER.24H PO SCH (20:34)
[2022-08-03] MEDS: QUEtiapine 200 MG TAB PO SCH (20:34)
[2022-08-04] MEDS ORDERED: amLODIPine 2.5 MG TAB PO SCH (09:00)
[2022-08-04] MEDS: carvediloL 6.25 MG TAB PO SCH ×2 (10:02→17:54)
[2022-08-04] MEDS: DILTIAZEM ORAL 60 MG TAB PO SCH (10:03)
[2022-08-04] MEDS: APIXABAN 5 MG TAB PO SCH ×2 (10:03→21:08)
[2022-08-04] MEDS: metOLazone 5 MG TAB PO SCH (10:03)
[2022-08-04] MEDS: DULoxetine HCL 30 MG CAPSULE.DR PO SCH ×2 (10:03→21:08)
[2022-08-04] MEDS: HYDROcodone/APAP 5-325MG 1 EACH TAB PO PRN ×2 (10:04→21:07)
[2022-08-04] MEDS: GABAPENTIN 400 MG CAP PO SCH ×3 (10:04→21:08)
--- NOTE | 2022-08-04 12:06 | P.PN ---
Progress Note - Text Progress Note Date: 08/04/22 Interval History: Patient was seen sitting at the side of his bed today. He continues to have a depressed affect. He states that his mood is still "up and down". He claims that he was previously on lithium and asked if he could be on a mood stabilizer. Discussed the pros and cons of this and he claims that it helped him in the past and wanted to be restarted on it. He states that he is still having suicidal thoughts and was upset that the medical social worker was trying to help him and that he would go to a motel. He claims that he "don't want to live anymore" and continues to focus on his pain and his depression as well. He claims that he has nothing to live for. He states that he is not sleeping well at night as well. Gait claims of a mild improving appetite. He states that he is going to some groups however not finding that helpful. Continues to threaten suicide when he leaves the hospital stating "I just want to go somewhere to alone". At this time patient denies any homical ideations, intent or plan. patient denies any auditory, visual hallucinations and denies any paranoia or delusions. Patient denies any side effects from the medications and has been compliant with meds. Mental Status Exam: General Appearance: Patient appears to be tall, longer hair sena, stated age is alert, difficult to engage, argumentative today. Marginal hygiene. Behavior: Patient is calmly seated without any agitated behavior. Blunted. Speech: Patient's speech is fluent and nonpressured. [place], argumentative Mood/Affect: Mood is depressed, affect is congruent and constricted. Suicidality/Homicidality: Patient denies having any homicidal ideation intent or plan. He admits to suicidal thoughts, no intent or plan. Perceptions: Patient denies any visual hallucinations and denies any auditory hallucinations Though content/process: There is no evidence of any delusional thought content and thought process is linear and goal-directed. [place]. Vague. Argumentative Memory and concentration: AOX3, grossly intact for the purposes of this session Judgment and insight: Poor Assessment Major depressive disorder, without psychotic features, rule out bipolar depression Cannabis use disorder mild Plan: -Patient continues to meet criteria for inpatient psychiatric admission for symptom stabilization and safety. Patient has signed adult voluntary form and was placed in patient's chart. -Medications: Increase Seroquel 300 mg daily at bedtime for mood stabilizatio n/insomnia, Cymbalta 30 mg BID for mood/anxiety/pain. remeron 15 mg qhs for mood/insomnia/appetite. Added lithium under 50 mg twice a day for mood stabilization/suicidal thoughts. -When necessary Ativan and Haldol for agitation/aggression. -NRT -not needed as patient does not smoke -SW on board for discharge planning. Encouraged the patient to participate in milieu. Patient currently wants to relocate to the area and go to a [facility] or room and board vs low cost motel. medical social worker looking into this. likely discharge next week.
[2022-08-04] MEDS: LITHIUM CARBONATE 150 MG CAP PO SCH ×2 (15:02→21:09)
[2022-08-04] MEDS: DILTIAZEM ORAL 30 MG TAB PO SCH ×2 (16:17→21:09)
[2022-08-04] MEDS: QUEtiapine 100 MG TAB PO SCH (21:08)
[2022-08-04] MEDS: ATORVASTATIN 40 MG TAB PO SCH (21:08)
[2022-08-04] MEDS: MIRTAZAPINE 15 MG TAB PO SCH (21:08)
[2022-08-04] MEDS: TAMSULOSIN 0.4 MG CAP.ER.24H PO SCH (21:08)
[2022-08-05] MEDS: HYDROcodone/APAP 5-325MG 1 EACH TAB PO PRN ×2 (08:00→16:13)
[2022-08-05] MEDS: metOLazone 5 MG TAB PO SCH (08:01)
[2022-08-05] MEDS: LITHIUM CARBONATE 150 MG CAP PO SCH ×2 (08:01→20:38)
[2022-08-05] MEDS: APIXABAN 5 MG TAB PO SCH ×2 (08:01→20:37)
[2022-08-05] MEDS: DILTIAZEM ORAL 30 MG TAB PO SCH ×3 (08:01→20:38)
[2022-08-05] MEDS: carvediloL 6.25 MG TAB PO SCH ×2 (08:01→17:51)
[2022-08-05] MEDS: DULoxetine HCL 30 MG CAPSULE.DR PO SCH (08:01)
[2022-08-05] MEDS: GABAPENTIN 400 MG CAP PO SCH ×3 (08:01→20:37)
--- NOTE | 2022-08-05 12:07 | P.PN ---
Progress Note - Text Progress Note Date: 08/05/22 Interval History: Patient was seen sitting at the side of his bed today. Today patient appears to be mildly brighter in his affect. He states that he is doing "a bit better" compared to yesterday. He states that the lithium has been helping stabilize his mood and also states that he was able to sleep "a lot better" last night with the increase in Seroquel. He thanked copywriter for helping him. He continues to complain about his congestive heart failure and also his neuropathy in his legs. He spoke about a long history of cocaine abuse however has quit. She continues to be indecisive about where he wants to go upon discharge and not motivated. He was less focused on suicide at this time. Continues to state that he is feeling depressed however this has been improving. He is less argumentative and irritable today. Claims that she was upset at the social insurance analyst this morning because "she is telling me that I got 5 minutes to decide where I'm going to go and I didn't like that" and claims that he left the group early. At this time patient denies any homical ideations, intent or plan. patient denies any auditory, visual hallucinations and denies any paranoia or delusions. Patient denies any side effects from the medications and has been compliant with meds. Mental Status Exam: General Appearance: Patient appears to be tall, longer hair sena, stated age is alert, difficult to engage, less argumentative today. Marginal hygiene. Behavior: Patient is calmly seated without any agitated behavior. less argumentative. Speech: Patient's speech is fluent and nonpressured. [place], improving. Mood/Affect: Mood is depressed, improving mildly, affect is congruent Suicidality/Homicidality: Patient denies having any homicidal ideation intent or plan. He denies any suicidal thoughts, no intent or plan. Perceptions: Patient denies any visual hallucinations and denies any auditory hallucinations Though content/process: There is no evidence of any delusional thought content and thought process is linear and goal-directed. [place]. Vague. Memory and concentration: AOX3, grossly intact for the purposes of this session Judgment and insight: Poor, improving mildly Assessment Major depressive disorder, without psychotic features, rule out bipolar depression Cannabis use disorder mild Plan: -Patient continues to meet criteria for inpatient psychiatric admission for symptom stabilization and safety. Patient has signed adult voluntary form and was placed in patient's chart. -Medications: Seroquel 300 mg daily at bedtime for mood stabilization/insomnia, increase Cymbalta 30 mg daily + 60 mg qhs for mood/anxiety/pain. remeron 15 mg qhs for mood/insomnia/appetite. lithium 150 mg twice a day for mood stabilization/suicidal thoughts. -When necessary Ativan and Haldol for agitation/aggression. -NRT -not needed as patient does not smoke -SW on board for discharge planning. Encouraged the patient to participate in milieu. Patient currently wants to relocate to the area and go to a [facility]/room and board vs low cost motel. social insurance analyst looking into this and continuing to assist. likely discharge next week monday. patient will receive his SS check on Aug 09.
[2022-08-05] MEDS: QUEtiapine 100 MG TAB PO SCH (20:37)
[2022-08-05] MEDS: ATORVASTATIN 40 MG TAB PO SCH (20:37)
[2022-08-05] MEDS: DULoxetine HCL 60 MG CAPSULE.DR PO SCH (20:37)
[2022-08-05] MEDS: MIRTAZAPINE 15 MG TAB PO SCH (20:37)
[2022-08-05] MEDS: TAMSULOSIN 0.4 MG CAP.ER.24H PO SCH (20:37)
[2022-08-06] MEDS: metOLazone 5 MG TAB PO SCH (08:43)
[2022-08-06] MEDS: LITHIUM CARBONATE 150 MG CAP PO SCH ×2 (08:43→20:35)
[2022-08-06] MEDS: DULoxetine HCL 30 MG CAPSULE.DR PO SCH (08:43)
[2022-08-06] MEDS: DILTIAZEM ORAL 30 MG TAB PO SCH ×3 (08:43→20:34)
[2022-08-06] MEDS: carvediloL 6.25 MG TAB PO SCH ×2 (08:43→17:49)
[2022-08-06] MEDS: APIXABAN 5 MG TAB PO SCH ×2 (08:43→20:34)
[2022-08-06] MEDS: GABAPENTIN 400 MG CAP PO SCH ×4 (08:43→20:34)
[2022-08-06] MEDS: HYDROcodone/APAP 5-325MG 1 EACH TAB PO PRN ×2 (08:45→20:35)
--- NOTE | 2022-08-06 11:35 | P.PN ---
Subjective Progress Note Date: 08/06/22 Principal diagnosis: Bipolar mixed Interval History: Patient was seen in my office he was watching TV and got up and came and talked with me with no problem. He states that he is doing "a bit better" compared to yesterday, his main complaint is peripheral neuropathy. He also says that the Seroquel helps him get to sleep but seems to cause him to feel restless so when he wakes back up after 3 or 4 hours he has to get up and walk around.. 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 He says he is okay with God but just troubled with the loss of his and his health and with chronic pain. He says that he has been diagnosed with bipolar in the past. He says his brain is always racing but sometimes he'll take on 3 jobs at the same time and not bothered to sleep as he manages them. He says even though his depressed he has racing thoughts at this time. Mental Status Exam: Good eye contact reasonable response times General Appearance: Patient appears to be tall, longer hair sena, stated age is alert, difficult to engage, not argumentative today. Adequate hygiene. Behavior: Patient is calmly seated without any agitated behavior.. Speech: Patient's speech is fluent and nonpressured. Abstract and logical Mood/Affect: Mood is depressed, improving mildly, affect is congruent Suicidality/Homicidality: Patient denies having any homicidal ideation intent or plan. He denies any suicidal thoughts, no intent or plan. Perceptions: Patient denies any visual hallucinations and denies any auditory hallucinations and I did not see any evidence of him responding to voices he did not seem paranoid Though content/process: There is no evidence of any delusional thought content and thought process is linear and goal-directed. Vague. Memory and concentration: AOX3, grossly intact for the purposes of this session Judgment and insight: Poor, improving mildly Assessment Bipolar mixed Cannabis use disorder mild Plan: -Patient continues to meet criteria for inpatient psychiatric admission for symptom stabilization and safety. Patient has signed adult voluntary form and was placed in patient's chart. -Medications: Discontinue the Seroquel due to evident akathisia replaced with Zyprexa which should help with sleep help with racing thoughts throughout the day and not cause akathisia. I educated him on the benefits of Cymbalta in regards to ignoring pain and he was very positive about that information and seems to be tolerating the increase well. Continue Cymbalta 30 mg daily + 60 mg qhs for mood/anxiety/pain. Consider moving all the Cymbalta to the morning as it can make it hard to sleep but he does seem to fall asleep okay. Continue remeron 15 mg qhs for mood/insomnia/appetite. lithium 150 mg twice a day for mood stabilization/suicidal thoughts he is not reporting any excessive urination or shakiness that he had on it before but the dose is modest. -When necessary Ativan and Haldol for agitation/aggression. -NRT -not needed as patient does not smoke -SW on board for discharge planning. Encouraged the patient to participate in milieu. Patient currently wants to relocate to the area and go to a [facility]/room and board vs low cost motel. social welfare clerk looking into this and continuing to assist. likely discharge next week monday. patient will receive his SS check on Aug 09. Objective - Vital Signs Vital signs: Vital Signs Temp 97.9 F 08/06/22 06:30 Pulse 69 08/06/22 06:30 Resp 16 08/06/22 06:30 BP 119/71 08/06/22 06:30 Pulse Ox 97 08/06/22 06:30 FiO2 - Labs CBC & Chem 7: 07/28/22 19:16 07/28/22 19:16
[2022-08-06] MEDS: DULoxetine HCL 60 MG CAPSULE.DR PO SCH (20:34)
[2022-08-06] MEDS: ATORVASTATIN 40 MG TAB PO SCH (20:34)
[2022-08-06] MEDS: TAMSULOSIN 0.4 MG CAP.ER.24H PO SCH (20:34)
[2022-08-06] MEDS: MIRTAZAPINE 15 MG TAB PO SCH (20:35)
[2022-08-06] MEDS ORDERED: OLANZapine 10 MG TAB PO SCH (21:00)
[2022-08-07] MEDS: metOLazone 5 MG TAB PO SCH (08:24)
[2022-08-07] MEDS: DILTIAZEM ORAL 30 MG TAB PO SCH ×3 (08:24→20:11)
[2022-08-07] MEDS: GABAPENTIN 400 MG CAP PO SCH ×4 (08:25→20:07)
[2022-08-07] MEDS: APIXABAN 5 MG TAB PO SCH ×2 (08:25→20:08)
[2022-08-07] MEDS: LITHIUM CARBONATE 150 MG CAP PO SCH (08:25)
[2022-08-07] MEDS: DULoxetine HCL 30 MG CAPSULE.DR PO SCH (08:25)
[2022-08-07] MEDS: carvediloL 6.25 MG TAB PO SCH ×2 (08:25→17:51)
[2022-08-07] MEDS: HYDROcodone/APAP 5-325MG 1 EACH TAB PO PRN ×2 (08:26→17:52)
--- NOTE | 2022-08-07 14:19 | P.PN ---
Subjective Progress Note Date: 08/07/22 Principal diagnosis: Bipolar mixed Interval History: Subjective: Patient came and talked with me with no problem. He states that he is doing "a bit better" compared to yesterday, his main complaint is peripheral neuropathy. We stopped the Seroquel due to significant case of akathisia and tried 10 mg of olanzapine. First it did not work on sleep second it allowed us to uncover a significant case of tired eye dyskinesia mostly involved trusting of the tongue and is at about a 2+. The patient was aware of the movements of the tongue which he ascribed to dry lips. Although he has no teeth he has no pain in his mouth and other people have noticed him thrusting his tongue as well. He needs some sort of medicine for austyn but switching over to clozapine is a major shift he has done well on lithium although at too high a dose he did get some excess tremors. He feels the lower dose is helping some. He also was unable to sleep and would like something to help him sleep Objective: I ran an aims test which was significantly positive with thrusting of the tongue, and dancing movements of the legs is a she when he is concentrating. Mental Status Exam: Good eye contact reasonable response times General Appearance: Patient appears to be tall, longer sena hair, he appears his stated age, and is alert, he is pleasant. Adequate hygiene. He walks slowly with a walker Behavior: Patient is calmly seated without any agitated behavior.. Speech: Patient's speech is fluent and nonpressured. Abstract and logical Mood/Affect: Mood is depressed, improving mildly, affect is congruent Suicidality/Homicidality: Patient denies having any homicidal ideation intent or plan. He denies any suicidal thoughts, no intent or plan. Perceptions: Patient denies any visual hallucinations and denies any auditory hallucinations and I did not see any evidence of him responding to voices he did not seem paranoid Though content/process: There is no evidence of any delusional thought content and thought process is linear and goal-directed. Vague. Memory and concentration: AOX3, grossly intact for the purposes of this session Judgment and insight: Poor, improving mildly Assessment: Due to the significant tardive dyskinesia we really need to get him off of dopamine 2 blockers. Bipolar mixed Cannabis use disorder mild Plan: -Patient continues to meet criteria for inpatient psychiatric admission for symptom stabilization and safety. Patient has signed adult voluntary form and was placed in patient's chart. -Medications: We are going to discontinue the olanzapine as that will cause tardive dyskinesia to worsen even faster than Seroquel. We're going to increase the lithium to 300 twice a day in the hopes that that will protect against austyn and give him something for sleep along the line of Restoril as he has tried trazodone and melatonin without success. Continue Cymbalta 30 mg daily + 60 mg qhs for mood/anxiety/pain. Consider moving all the Cymbalta to the morning as it can make it hard to sleep but he does seem to fall asleep okay. Continue remeron 15 mg qhs for mood/insomnia/appetite. lithium 300 mg twice a day for mood stabilization/suicidal thoughts he is not reporting any excessive urination or shakiness that he had on it before but the dose is modest. -When necessary Ativan and Haldol for agitation/aggression. -NRT -not needed as patient does not smoke -SW on board for discharge planning. Encouraged the patient to participate in milieu. Patient currently wants to relocate to the area and go to a [facility]/room and board vs low cost motel. social service coordinator looking into this and continuing to assist. likely discharge next week monday. patient will receive his SS check on Aug 09. Objective - Vital Signs Vital signs: Vital Signs Temp 97.9 F 08/06/22 06:30 Pulse 78 08/07/22 08:24 Resp 16 08/06/22 06:30 BP 125/75 08/07/22 08:24 Pulse Ox 97 08/06/22 06:30 FiO2 - Labs CBC & Chem 7: 07/28/22 19:16 07/28/22 19:16
[2022-08-07] MEDS: LITHIUM CARBONATE 300 MG CAP PO SCH (20:07)
[2022-08-07] MEDS: ATORVASTATIN 40 MG TAB PO SCH (20:07)
[2022-08-07] MEDS: MIRTAZAPINE 15 MG TAB PO SCH (20:07)
[2022-08-07] MEDS: TAMSULOSIN 0.4 MG CAP.ER.24H PO SCH (20:08)
[2022-08-07] MEDS ORDERED: TEMAZEPAM 30 MG CAP PO SCH (21:00)
[2022-08-08] MEDS: HYDROcodone/APAP 5-325MG 1 EACH TAB PO PRN ×2 (05:50→20:11)
[2022-08-08] MEDS: carvediloL 6.25 MG TAB PO SCH ×2 (08:51→16:48)
[2022-08-08] MEDS: DULoxetine HCL 30 MG CAPSULE.DR PO SCH (08:51)
[2022-08-08] MEDS: GABAPENTIN 400 MG CAP PO SCH ×4 (08:51→22:18)
[2022-08-08] MEDS: metOLazone 5 MG TAB PO SCH (08:51)
[2022-08-08] MEDS: APIXABAN 5 MG TAB PO SCH ×2 (08:51→20:09)
[2022-08-08] MEDS: LITHIUM CARBONATE 300 MG CAP PO SCH ×2 (08:51→20:09)
[2022-08-08] MEDS: DILTIAZEM ORAL 30 MG TAB PO SCH ×3 (08:52→20:10)
--- NOTE | 2022-08-08 10:33 | P.PN ---
Progress Note - Text Progress Note Date: 08/08/22 Interval History: Patient was seen sitting in on group today and was agreeable to speak to freelance copywriter. Patient states that he is doing a bit better today. He claims that the medications have been helping and also is staying positive as he found a room and board that he can go to in [facility]. He states that she would be able to go tomorrow. He claims that he is not able to sleep well at all as the Seroquel was taken away. He claims that the lithium has been helping at this time. He is denying any side effects at this time. Claims to be less irritable at this time. States that his appetite is a bit more improved and that he is going to groups and participating. At this time patient denies any homical ideations, intent or plan. patient denies any auditory, visual hallucinations and denies any paranoia or delusions. Patient denies any side effects from the medications and has been compliant with meds. Mental Status Exam: General Appearance: Patient appears to be tall, longer hair sena, stated age is alert, cooperative today. Marginal hygiene. Behavior: Patient is calmly seated without any agitated behavior. mOre cooperative today. Speech: Patient's speech is fluent and nonpressured. [place], improving. Mood/Affect: Mood is improving mildly, affect is congruent Suicidality/Homicidality: Patient denies having any homicidal ideation intent or plan. He denies any suicidal thoughts, no intent or plan. Perceptions: Patient denies any visual hallucinations and denies any auditory hallucinations Though content/process: There is no evidence of any delusional thought content and thought process is linear and goal-directed. [place]. Memory and concentration: AOX3, grossly intact for the purposes of this session Judgment and insight: improving mildly Assessment Major depressive disorder, without psychotic features, rule out bipolar depression Cannabis use disorder mild Plan: -Patient continues to meet criteria for inpatient psychiatric admission for symptom stabilization and safety. Patient has signed adult voluntary form and was placed in patient's chart. -Medications: restarted Seroquel 200 mg daily at bedtime for mood stabilization/insomnia, continue Cymbalta 90 mg daily for mood/anxiety/pain. remeron 15 mg qhs for mood/insomnia/appetite. Continue lithium 300 mg twice a day for mood stabilization/suicidal thoughts. -When necessary Ativan and Haldol for agitation/aggression. -NRT -not needed as patient does not smoke -SW on board for discharge planning. Encouraged the patient to participate in milieu. Patient states that he has a room and board ready for him in [place] and will be able to go there tomorrow.
[2022-08-08] MEDS: ATORVASTATIN 40 MG TAB PO SCH (20:09)
[2022-08-08] MEDS: MIRTAZAPINE 15 MG TAB PO SCH (20:10)
[2022-08-08] MEDS: TAMSULOSIN 0.4 MG CAP.ER.24H PO SCH (20:10)
[2022-08-08] MEDS ORDERED: QUEtiapine 200 MG TAB PO SCH (21:00)
[2022-08-09] MEDS: HYDROcodone/APAP 5-325MG 1 EACH TAB PO PRN (06:24)
[2022-08-09 06:49] VITALS: RESP 17; TEMP 97.1
[2022-08-09] MEDS: DULoxetine HCL 30 MG CAPSULE.DR PO SCH (07:58)
[2022-08-09] MEDS: APIXABAN 5 MG TAB PO SCH (07:58)
[2022-08-09] MEDS: carvediloL 6.25 MG TAB PO SCH (07:58)
[2022-08-09] MEDS: DILTIAZEM ORAL 30 MG TAB PO SCH (07:58)
[2022-08-09] MEDS: GABAPENTIN 400 MG CAP PO SCH (07:59)
[2022-08-09] MEDS: LITHIUM CARBONATE 300 MG CAP PO SCH (07:59)
[2022-08-09 08:01] VITALS: BP 110/67; PULSE 86
[2022-08-09] MEDS: metOLazone 5 MG TAB PO SCH (08:49)
--- NOTE | 2022-08-09 09:43 | P.DS ---
Providers Date of admission: 08/01/22 12:43 Expected date of discharge: 08/09/22 Attending physician: ePte Jeff MD Consults: 08/01/22 12:56 Consult Physician Routine Consulting Provider: [facility] Consult Reason/Comments: H&P and medical Do you want consulting provider notified?: Yes Primary care physician: David Flores - Discharge Diagnosis(es) (1) Major depressive disorder without psychotic features Current Visit: Yes Status: Acute Priority: High (2) Cannabis use disorder, mild, abuse Current Visit: Yes Status: Acute Priority: Medium Hospital Course: Admission HPI: Admission note was completed by Dr Hager "the patient is a 67-year-old male, who resides with a housemate. He presented to the ED for evaluation. The patient stated in the ED that he was suicidal. He had no way to get home and said that if he is discharged she would walk out in front of a car. The patient was the primary source of information only provided a limited amount of history about his current situation as well as past mental health issues. The patient states that currently he has been having increasing problems with depression. He was vague about particulars of that. He will says he lives with another person though it does not sound like the 2 of them have a cordial relationship. He says that the woman is 25 years younger. He says that they have continues complex mother's issues are in the house. He has been increasingly depressed in that situation though also she has had progressive problems with neuropathy that are making it difficult for him to even ambulate little on function in the way that he thinks he should be able to. He said that he has had a long history of clear he works long hours and feels he had been very productive in his life. He says he is seeing all of that and has having gone away. He said that he has had a psychiatric hospitalization "a while ago". He did not give specifics. He indicated that he may have been diagnosed with bipolar disorder where he would have episodes of high energy decreased need for sleep and ability to function in a wide range of activities. 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 He said he would work from early in the morning to late at night and never had any problems with that. He also notes that he had legal issues with cocaine possession and he ended up serving 9 years in [facility] with his release in 1998. He states that he has not been using any cocaine or for any other hard drugs. Jarocho perez does not drink. He does see that he smokes marijuana quite a bit on a daily basis. He said that "that is about all I do is sit at home and smoke marijuana to relax myself". He notes that he sleeps poorly though he is on Seroquel 200 mg a day. He says as long as he takes Seroquel he sleeps okay and if he does not take [place] he does not sleep at all. He states that he has had depression with loss of motivation and energy and interest. He does not identify any symptoms of psychosis neither hallucinations nor delusions. He does not identify any significant anxiety issues. He has had not had problems with panic. When asked about past traumas or posttraumatic issues he stated "there might be things out there by it does not moderate now". In regard to psychotropic medications he is on Seroquel 20 mg at bedtime. In addition he said he has been taking Cymbalta. He thought he was taking 60 mg twice a day though pharmacy records indicate that his last refill Cymbalta was 05/26 when he received 30 tablets of Cymbalta. He said he thought he was taking Cymbalta twice a day and thought he had been taking it at the present though said "maybe I'm not certain about that". He acknowledges a lot of distress with the main issues being his struggles with mobility from neuropathy. She is admitted for further evaluation." Hospital course: Upon admission to the unit patient was directable and agreeable to commence treatment and signed adult voluntary form . Patient got along well with other patients on the unit and followed unit protocol. Patient was compliant with the medications and denied any side effects throughout hospital course. Patient was started on Seroquel 200 mg daily at bedtime for mood stabilization/insomnia, Cymbalta 90 mg daily for mood/90/pain, Remeron 15 mg daily at bedtime for mood/insomnia/appetite, lithium 300 mg twice a day for mood stabilization/suicidal thoughts.. Patient spoke of his stressors and engaged in therapy both group and individual. Patient was also seen by medical team for history and physical exam. Patient had a CT scan of his abdomen performed which showed diverticulosis without acute diverticulitis and mild prominence of left adrenal gland. Throughout the course of the hospitalization patient gradually improved with regards to mood, anxiety, suicidal thoughts, sleep and returned back to their baseline level of functioning. On the day of discharge patient denied any suicidal or homicidal ideations intent or plan denied any auditory or visual hallucinations. Patient endorsed wanting to live for his future and finding a place to live more permanently. The patient denied any access to guns or weapons. Patient denied any paranoia and did not endorse any delusions. Patient does have a significant history of substance abuse and was counseled on abstaining from all substances including alcohol and marijuana. Patient was also counseled on the medications and need for regular compliance and was encouraged to follow-up with their outpatient appointment for mental health and also for primary care. Patient was given referral to another room and board's, penitentiary however patient opted to stay in a motel at this time. Mental status exam: General Appearance: Patient appears to be tall, using a walker, stated age is alert, pleasant, and cooperative. Patient is in no acute distress and has improved hygiene and grooming Behavior: Patient is calmly seated without any agitated behavior. Speech: Patient's speech is fluent and nonpressured. Mood/Affect: Patient reports their mood is "better", affect is congruent Suicidality/Homicidality: Patient denies having any suicidal or homicidal ideation intent or plan. Perceptions: Patient denies any auditory or visual hallucinations. Though content/process: There is no evidence of any delusional thought content and thought process is linear and goal-directed. more future oriented Memory and concentration: AOX3, grossly intact for the purposes of this session. Can spell "WORLD" backwards correctly. Judgment and insight: chronically poor, however has improved with guarded prognosis Impression: Major depressive disorder, without psychotic features, rule out bipolar depression Cannabis use disorder mild Plan: -Continue with discharge today as patient has improved and stabilized psychiatrically and is not currently an imminent threat to himself and/or o thers. Patient will remain at chronically elevated risk for harm to self and/or others due to his impulsivity. -Continue medications: Seroquel 200 mg daily at bedtime for mood stabilization/insomnia, Cymbalta 90 mg daily for mood/anxiety/pain, Remeron 15 mg daily at bedtime for mood/insomnia/appetite, lithium 300 mg twice a day for mood stabilization/suicidal thoughts -Patient was counseled on the need for medication compliance and appropriate follow-up at mental health and also primary care for medical issues. Patient verbalized understanding and agreed. -Social work to help coordinate patient discharged today to the [facility]. Social work also to arrange for patients follow up appointments with [facility] for psychiatric care along with follow up with primary care provider. -Patient counseled on abstaining from recreational drugs and marijuana and alcohol. Was informed/educated on the adverse effects on their physical and mental health. Patient verbally agreed and understood. -Patient was instructed to return to the hospital or seek immediate medical care if their psychiatric or medical symptoms do worsen or reoccur. Laboratory Results WBC 14.1 k/uL (3.8-10.6) H 07/28/22 19:16 RBC 4.92 m/uL (4.30-5.90) 07/28/22 19:16 Hgb 15.9 gm/dL (13.0-17.5) 07/28/22 19:16 Hct 47.2 % (39.0-53.0) 07/28/22 19:16 MCV 95.8 fL (80.0-100.0) 07/28/22 19:16 MCH 32.3 pg (25.0-35.0) 07/28/22 19:16 MCHC 33.7 g/dL (31.0-37.0) 07/28/22 19:16 RDW 13.7 % (11.5-15.5) 07/28/22 19:16 Plt Count 195 k/uL (150-450) 07/28/22 19:16 MPV 8.6 07/28/22 19:16 Neutrophils % 86 % 07/28/22 19:16 Lymphocytes % 9 % 07/28/22 19:16 Monocytes % 3 % 07/28/22 19:16 Eosinophils % 1 % 07/28/22 19:16 Basophils % 0 % 07/28/22 19:16 Neutrophils # 12.1 k/uL (1.3-7.7) H 07/28/22 19:16 Lymphocytes # 1.3 k/uL (1.0-4.8) 07/28/22 19:16 Monocytes # 0.5 k/uL (0-1.0) 07/28/22 19:16 Eosinophils # 0.2 k/uL (0-0.7) 07/28/22 19:16 Basophils # 0.0 k/uL (0-0.2) 07/28/22 19:16 Sodium 136 mmol/L (137-145) L 07/28/22 19:16 Potassium 5.3 mmol/L (3.5-5.1) H 07/28/22 19:16 Chloride 106 mmol/L (98-107) 07/28/22 19:16 Carbon Dioxide 19 mmol/L (22-30) L 07/28/22 19:16 Anion Gap 11 mmol/L 07/28/22 19:16 BUN 12 mg/dL (9-20) 07/28/22 19:16 Creatinine 0.77 mg/dL (0.66-1.25) 07/28/22 19:16 Est GFR (CKD-EPI)AfAm >90 (>60 ml/min/1.73 sqM) 07/28/22 19:16 Est GFR (CKD-EPI)NonAf >90 (>60 ml/min/1.73 sqM) 07/28/22 19:16 Glucose 125 mg/dL (74-99) H 07/28/22 19:[address] Glu mg/dL 124 08/02/22 07:08 Hemoglobin A1c 5.9 % (0.0-6.0) 08/02/22 07:08 Calcium 9.4 mg/dL (8.4-10.2) 07/28/22 19:16 Total Bilirubin 0.9 mg/dL (0.2-1.3) 07/28/22 19:16 AST 49 U/L (17-59) 07/28/22 19:16 ALT 66 U/L (4-49) H 07/28/22 19:16 Alkaline Phosphatase 103 U/L (38-126) 07/28/22 19:16 Total Protein 8.5 g/dL (6.3-8.2) H 07/28/22 19:16 Albumin 4.6 g/dL (3.5-5.0) 07/28/22 19:16 Triglycerides 74.50 mg/dL (0.00-149.00) 08/02/22 07:08 Cholesterol 112.00 mg/dL (0.00-200.00) 08/02/22 07:08 LDL Cholesterol, Calc 42.0 mg/dL (0.0-131.0) 08/02/22 07:08 VLDL Cholesterol, Calc 14.90 mg/dL (5.00-40.00) 08/02/22 07:08 HDL Cholesterol 55.10 mg/dL (40.00-60.00) 08/02/22 07:08 Cholesterol/HDL Ratio 2.03 Ratio 08/02/22 07:08 Lipase 60 U/L (23-300) 07/28/22 19:16 TSH 3.700 mIU/L (0.465-4.680) 08/02/22 07:08 Urine Color Light Yellow 07/29/22 10:02 Urine Appearance Clear (Clear) 07/29/22 10:02 Urine pH 5.5 (5.0-8.0) 07/29/22 10:02 Ur Specific [place] 1.010 (1.001-1.035) 07/29/22 10:02 Urine Protein Negative (Negative) 07/29/22 10:02 Urine Glucose (UA) Negative (Negative) 07/29/22 10:02 Urine Ketones Negative (Negative) 07/29/22 10:02 Urine Blood Negative (Negative) 07/29/22 10:02 Urine Nitrite Negative (Negative) 07/29/22 10:02 Urine Bilirubin Negative (Negative) 07/29/22 10:02 Urine Urobilinogen <2.0 mg/dL (<2.0) 07/29/22 10:02 Ur Leukocyte Esterase Negative (Negative) 07/29/22 10:02 Urine Opiates Screen Not Detected (NotDetected) 07/27/22 16:50 Ur Oxycodone Screen Not Detected (NotDetected) 07/27/22 16:50 Urine Methadone Screen Not Detected (NotDetected) 07/27/22 16:50 Ur Propoxyphene Screen Not Detected (NotDetected) 07/27/22 16:50 Ur Barbiturates Screen Not Detected (NotDetected) 07/27/22 16:50 U Tricyclic Antidepress Detected (NotDetected) H 07/27/22 16:50 Ur Phencyclidine Scrn Not Detected (NotDetected) 07/27/22 16:50 Ur Amphetamines Screen Not Detected (NotDetected) 07/27/22 16:50 U Methamphetamines Scrn Not Detected (NotDetected) 07/27/22 16:50 U Benzodiazepines Scrn Not Detected (NotDetected) 07/27/22 16:50 Urine Cocaine Screen Not Detected (NotDetected) 07/27/22 16:50 U Marijuana (THC) Screen Detected (NotDetected) H 07/27/22 16:50 Coronavirus (PCR) Not Detected (Not Detectd) 07/27/22 16:03 Influenza Type A (PCR) Not Detected (Not Detectd) 07/29/22 08:53 Influenza Type B (PCR) Not Detected (Not Detectd) 07/29/22 08:53 RSV (PCR) Not Detected (Not Detectd) 07/29/22 08:53 SARS-CoV-2 (PCR) Not Detected (Not Detectd) 07/29/22 08:53 Vital Signs Temp 97.1 F L 08/09/22 06:48 Pulse 86 08/09/22 08:00 Resp 17 08/09/22 06:48 BP 110/67 08/09/22 08:00 Pulse Ox 98 08/09/22 06:48 FiO2 Allergies Allergy/AdvReac Type Severity Reaction Status Date / Time sulfamethoxazole Allergy Swelling Verified 07/27/22 16:26 [From Bactrim] trimethoprim [From Bactrim] Allergy Swelling Verified 07/27/22 16:26 bees Allergy Unknown Uncoded 07/27/22 16:26 Patient Condition at Discharge: Stable Plan - Discharge Summary Discharge Rx Participant: No New Discharge Prescriptions: New DULoxetine HCL [Cymbalta] 90 mg PO DAILY 30 Days cap [place] Carbonate 300 mg PO BID 30 Days cap Mirtazapine [Remeron] 15 mg PO HS 30 Days tab Continue Albuterol Sulfate [Albuterol Sulfate Hfa] 2 puff PO RT-Q6H PRN PRN Reason: Shortness Of Breath Atorvastatin [Lipitor] 40 mg PO HS 30 Days tab metOLazone [Zaroxolyn] 5 mg PO DAILY 30 Days tab HYDROcodone/APAP 5-325MG [Halma 5-325] 1 tab PO Q8H PRN PRN Reason: Pain carvediloL [Coreg] 6.25 mg PO BID 30 Days tab dilTIAZem HCL 30 mg PO TID 30 Days tab Apixaban [Eliquis] 5 mg PO BID 30 Days tab Tamsulosin HCl [Flomax] 0.4 mg PO HS 30 Days cap Gabapentin [Neurontin] 400 mg PO TID 3 Days cap QUEtiapine FUMARATE [SEROquel] 200 mg PO HS 30 Days tab Discontinued amLODIPine [Norvasc] 5 mg PO DAILY Cholestyramine/Aspartame [Cholestyramine Light Packet] 4 gm PO BID PRN PRN Reason: Constipation Nitroglycerin Sl Tabs [Nitrostat] 0.4 mg SUBLINGUAL Q5M PRN PRN Reason: Chest Pain lisinopriL [Zestril] 2.5 mg PO DAILY Furosemide [Lasix] 40 mg PO DAILY PRN PRN Reason: Edema Discharge Medication List Albuterol Sulfate [Albuterol Sulfate Hfa] 2 puff PO RT-Q6H PRN 07/27/22 [History] HYDROcodone/APAP 5-325MG [[place] 5-325] 1 tab PO Q8H PRN 07/27/22 [History] Apixaban [Eliquis] 5 mg PO BID 30 Days tab 08/09/22 [Rx] Atorvastatin [Lipitor] 40 mg PO HS 30 Days tab 08/09/22 [Rx] DULoxetine HCL [Cymbalta] 90 mg PO DAILY 30 Days cap 08/09/22 [Rx] Gabapentin [Neurontin] 400 mg PO TID 3 Days cap 08/09/22 [Rx] [place] Carbon[place] 300 mg PO BID 30 Days cap 08/09/22 [Rx] Mirtazapine [Remeron] 15 mg PO HS 30 Days tab 08/09/22 [Rx] QUEtiapine FUMARATE [SEROquel] 200 mg PO HS 30 Days tab 08/09/22 [Rx] Tamsulosin HCl [Flomax] 0.4 mg PO HS 30 Days cap 08/09/22 [Rx] carvediloL [Coreg] 6.25 mg PO BID 30 Days tab 08/09/22 [Rx] dilTIAZem HCL 30 mg PO TID 30 Days tab 08/09/22 [Rx] metOLazone [Zaroxolyn] 5 mg PO DAILY 30 Days tab 08/09/22 [Rx] Follow up Appointment(s)/Referral(s): [facility] [Outside] - 08/10/22 12:30 pm (with Vanessa) David Flores DO [Primary Care Provider] - 1-2 days Patient Instructions/Handouts: Depression (DC) Activity/Diet/Wound Care/Special Instructions: Avoid the use of street drugs and alcohol. Take all prescriptions as prescribed. When you are in need of refills on your medications, please contact your medical provider and/or outpatient psychiatrist to have this done. Please go to scheduled outpatient appointment for aftercare treatment. If symptoms return or become worse, call the crisis line at and/or go to the nearest emergency room for evaluation Discharge/Stand Alone Forms: JAH Fuller Discharge Disposition: OTHER INSTITUTION NOT DEFINED
== END 2022-08-09 11:39 | disposition home or self-care (01) | DRG 881 ==
LOC: EC 13:52 → 3MHU 08-01 12:43
PROVIDERS: ADMIT Psychiatry & Neurology Psychiatry; ATTEND Psychiatry & Neurology Psychiatry
DX: F32.9 Major depressive disorder, single episode, unspecified (principal); F12.90 Cannabis use, unspecified, uncomplicated; F17.200 Nicotine dependence, unspecified, uncomplicated; F31.30 Bipolar disorder, current episode depressed, mild or moderate severity, unspecified; F31.60 Bipolar disorder, current episode mixed, unspecified; F41.9 Anxiety disorder, unspecified; G24.01 Drug induced subacute dyskinesia; G47.00 Insomnia, unspecified; G62.9 Polyneuropathy, unspecified; G89.29 Other chronic pain; I20.9 Angina pectoris, unspecified; I50.9 Heart failure, unspecified; J44.9 Chronic obstructive pulmonary disease, unspecified; K57.90 Diverticulosis of intestine, part unspecified, without perforation or abscess without bleeding; T50.902A Poisoning by unspecified drugs, medicaments and biological substances, intentional self-harm, initial encounter; Z20.822 Contact with and (suspected) exposure to COVID-19; Z79.01 Long term (current) use of anticoagulants; Z79.899 Other long term (current) drug therapy; Z86.73 Personal history of transient ischemic attack (TIA), and cerebral infarction without residual deficits
CPT/HCPCS: 36415; 74177; 80053; 80061; 80306; 81003; 82075; 83036; 83690; 84443; 85025; 87635; 96361; 96372; 96374; 96375; 99284

== ENCOUNTER 2022-08-17 14:28 | Inpatient (IN) | payer MEDICARE, MEDICAID ==
--- NOTE | 2022-08-17 15:06 | ED ---
Psych HPI - General Chief Complaint: Psychiatric Symptoms Stated Complaint: Suicidal Time Seen by Provider: 08/17/22 14:57 Source: patient Mode of arrival: ambulatory - History of Present Illness Initial Comments: 67-year-old male presents ambulatory to the emergency room with complaints of increased depression and suicidal ideation. Suicidal plan to jump into the river. Just discharged from [facility] today after admitted since Monday with diverticulitis. States that he was hospitalized for mental health here at our facility one week ago Monday. He is out of his bipolar medications for one week. Does smoke daily. Denies alcohol use. States lives alone and staying in a motel. MD Complaint: suicidal ideation, feels depressed Associated Psychiatric Symptoms: depression, suicidal ideation History of same: Yes Quality: getting worse Context: other (out of bipolar meds for one week) - Related Data Home Medications Medication Instructions Recorded Confirmed Albuterol Sulfate [Albuterol 2 puff PO RT-Q6H PRN 07/27/22 08/17/22 Sulfate Hfa] HYDROcodone/APAP 5-325MG [[place] 1 tab PO Q8H PRN 07/27/22 08/17/22 5-325] Previous Rx's Medication Instructions Recorded Apixaban [Eliquis] 5 mg PO BID 30 Days tab 08/09/22 Atorvastatin [Lipitor] 40 mg PO HS 30 Days tab 08/09/22 DULoxetine HCL [Cymbalta] 90 mg PO DAILY 30 Days cap 08/09/22 Gabapentin [Neurontin] 400 mg PO TID 3 Days cap 08/09/22 [place] Carbonate 300 mg PO BID 30 Days cap 08/09/22 Mirtazapine [Remeron] 15 mg PO HS 30 Days tab 08/09/22 QUEtiapine FUMARATE [SEROquel] 200 mg PO HS 30 Days tab 08/09/22 Tamsulosin HCl [Flomax] 0.4 mg PO HS 30 Days cap 08/09/22 carvediloL [Coreg] 6.25 mg PO BID 30 Days tab 08/09/22 dilTIAZem HCL 30 mg PO TID 30 Days tab 08/09/22 metOLazone [Zaroxolyn] 5 mg PO DAILY 30 Days tab 08/09/22 Allergies Allergy/AdvReac Type Severity Reaction Status Date / Time sulfamethoxazole Allergy Swelling Verified 08/17/22 18:04 [From Bactrim] trimethoprim [From Bactrim] Allergy Swelling Verified 08/17/22 18:04 venom-honey bee Allergy Unknown Verified 08/17/22 18:04 Review of Systems ROS Statement: Those systems with pertinent positive or pertinent negative responses have been documented in the HPI. ROS Other: All systems not noted in ROS Statement are negative. Past Medical History Past Medical History: Chest Pain / Angina, Heart Failure, COPD, CVA/TIA, Memory Impairment Additional Past Medical History / Comment(s): pt reports last CVA was in 2019. History of Any Multi-Drug Resistant Organisms: None Reported Past Surgical History: Heart Catheterization With Stent Additional Past Surgical History / Comment(s): pt reports pacemaker placed in 2019 and triple bypass in 2018 Past Anesthesia/Blood Transfusion Reactions: No Reported Reaction Date of Last Stent Placement:: 2014 Type of Cardiac Device: Permanent Pacemaker Device Placement Date:: 2019 Past Psychological History: No Psychological Hx Reported Smoking Status: Current every day smoker Past Alcohol Use History: Rare Past Drug Use History: None Reported - Past Family History Mother Family Medical History: Diabetes Mellitus Father Family Medical History: AFIB, Hypertension Course Vital Signs 08/17/22 08/17/22 14:58 22:00 Temperature 98.2 F Pulse Rate 89 68 Respiratory 22 16 Rate Blood Pressure 119/88 118/78 O2 Sat by Pulse 100 97 Oximetry Medical Decision Making - Lab Data Lab Results 08/17/22 08/17/22 08/17/22 Range/Units 20:15 20:26 20:26 Urine Color Dark Brown Urine Appearance Clear (Clear) Urine pH 5.5 (5.0-8.0) Ur Specific [place] 1.021 (1.001-1.035) Urine Protein Trace H (Negative) Urine Glucose (UA) Negative (Negative) Urine Ketones Negative (Negative) Urine Blood Negative (Negative) Urine Nitrite Negative (Negative) Urine Bilirubin Negative (Negative) Urine Urobilinogen <2.0 (<2.0) mg/dL Ur Leukocyte Esterase Trace H (Negative) Urine RBC 1 (0-5) /hpf Urine WBC 10 H (0-5) /hpf Urine Bacteria Rare H (None) /hpf Urine Mucus Moderate H (None) /hpf Urine Opiates Screen Not Detected (NotDetected) Ur Oxycodone Screen Not Detected (NotDetected) Urine Methadone Screen Not Detected (NotDetected) Ur Propoxyphene Screen Not Detected (NotDetected) Ur Barbiturates Screen Not Detected (NotDetected) U Tricyclic Antidepress Detected H (NotDetected) Ur Phencyclidine Scrn Not Detected (NotDetected) Ur Amphetamines Screen Not Detected (NotDetected) U Methamphetamines Scrn Not Detected (NotDetected) U Benzodiazepines Scrn Not Detected (NotDetected) Urine Cocaine Screen Not Detected (NotDetected) U Marijuana (THC) Screen Detected H (NotDetected) Coronavirus (PCR) Not Detected (Not Detectd) Disposition Disposition: ADMITTED IP TO THIS HOSP
[2022-08-17 20:49] LABS: Amphetamine Screen,Urine Not Detected (NotDetected); Barbiturate Screen,Urine Not Detected (NotDetected); Benzodiazepines Screen,Urine Not Detected (NotDetected); Cocaine Screen,Urine Not Detected (NotDetected); Methadone Screen, Urine Not Detected (NotDetected); Opiate Screen,Urine Not Detected (NotDetected); Oxycodone Screen, Urine Not Detected (NotDetected); Phencyclidine Screen,Urine Not Detected (NotDetected); Tricyclic Antidepressant,Urine Detected (NotDetected); Urn Cannabinoid Scrn Detected (NotDetected)
[2022-08-17] MEDS ORDERED: MAGNESIUM HYDROXIDE 2,400 MG/10 ML CUP PO PRN (21:28)
[2022-08-17] MEDS ORDERED: MAG HYDROX/AL HYDROX/SIMETH 30 ML CUP PO PRN (21:28)
[2022-08-17] MEDS ORDERED: HALOPERIDOL LACTATE 5 MG/ML 1 ML VIAL IM PRN (21:28)
[2022-08-17] MEDS ORDERED: ACETAMINOPHEN TAB 325 MG TAB PO PRN (21:28)
[2022-08-17] MEDS ORDERED: haloperidoL 5 MG TAB PO PRN (21:37)
[2022-08-17] MEDS: QUEtiapine 200 MG TAB PO SCH (23:48)
[2022-08-17] MEDS: GABAPENTIN 400 MG CAP PO SCH (23:48)
[2022-08-17] MEDS: DILTIAZEM ORAL 30 MG TAB PO SCH (23:48)
[2022-08-17] MEDS: AMOXIC-POT CLAV 875-125MG 1 EACH TAB PO SCH (23:48)
[2022-08-17] MEDS: carvediloL 6.25 MG TAB PO SCH (23:49)
[2022-08-17] MEDS: APIXABAN 5 MG TAB PO SCH (23:49)
[2022-08-17] MEDS: TAMSULOSIN 0.4 MG CAP.ER.24H PO SCH (23:50)
[2022-08-17] MEDS: MIRTAZAPINE 15 MG TAB PO SCH (23:50)
[2022-08-17] MEDS: LITHIUM CARBONATE 300 MG CAP PO SCH (23:50)
[2022-08-18] MEDS ORDERED: carvediloL 6.25 MG TAB PO SCH (09:00)
[2022-08-18] MEDS ORDERED: APIXABAN 5 MG TAB PO SCH (09:00)
[2022-08-18] MEDS ORDERED: LITHIUM CARBONATE 300 MG CAP PO SCH (09:00)
[2022-08-18 10:10] LABS: Appearance,Urine Clear (Clear); Bacteria,Urine Rare /hpf; Bilirubin,Urine Negative (Negative); Blood,Urine Negative (Negative); Color,Urine Dark Brown; Glucose,Urine (UA) Negative (Negative); Ketones,Urine Negative (Negative); Leukocyte Esterase,Urine Trace (Negative); Mucus,Urine Moderate /hpf; Nitrite,Urine Negative (Negative); PH, Urine 5.5 (5.0-8.0); Protein,Urine Trace (Negative); RBC,Urine 1 /hpf (0-5); Specific Gravity,Urine 1.021 (1.001-1.035); Urobilinogen,Urine <2.0 mg/dL (<2.0); WBC,Urine 10 /hpf (0-5)
[2022-08-18] MEDS: AMOXIC-POT CLAV 875-125MG 1 EACH TAB PO SCH ×2 (10:24→20:43)
[2022-08-18] MEDS: DILTIAZEM ORAL 30 MG TAB PO SCH ×3 (10:24→21:16)
[2022-08-18] MEDS: carvediloL 6.25 MG TAB PO SCH ×2 (10:24→20:43)
[2022-08-18] MEDS: GABAPENTIN 400 MG CAP PO SCH ×3 (10:24→20:43)
[2022-08-18] MEDS: metOLazone 5 MG TAB PO SCH (10:24)
[2022-08-18] MEDS: LITHIUM CARBONATE 300 MG CAP PO SCH ×2 (10:25→20:42)
[2022-08-18] MEDS: PANTOPRAZOLE 40 MG TABLET PO SCH ×2 (10:25→16:27)
[2022-08-18] MEDS: APIXABAN 5 MG TAB PO SCH ×2 (10:25→20:43)
[2022-08-18] MEDS: NICOTINE 14MG/24HR PATCH TRANSDERM SCH (10:26)
[2022-08-18] MEDS ORDERED: ALBUTEROL INHALER 60 PUFF/8 GM INHALER (MHU) INHALATION PRN (11:42)
[2022-08-18] MEDS ORDERED: OLANZapine 10 MG VIAL IM PRN (11:45)
[2022-08-18] MEDS ORDERED: OLANZapine 5 MG TAB PO PRN (11:45)
--- NOTE | 2022-08-18 11:46 | P.HP ---
Psychiatric H&P - . H&P Date: 08/18/22 History & Physical: Allergies Allergy/AdvReac Type Severity Reaction Status Date / Time sulfamethoxazole Allergy Swelling Verified 08/17/22 18:04 From Bactrim trimethoprim From Bactrim Allergy Swelling Verified 08/17/22 18:04 venom-honey bee Allergy Unknown Verified 08/17/22 18:04 Vital Signs Temp 97.9 F 08/18/22 06:32 Pulse 68 08/18/22 06:32 Resp 16 08/18/22 06:32 BP 90/56 08/18/22 06:32 Pulse Ox 98 08/17/22 23:01 FiO2 Intake & Output 08/17/22 08/18/22 08/18/22 18:59 06:59 18:59 Weight 113.398 kg 120.23 kg Laboratory Last Values Urine Color Dark Brown 08/17/22 20:26 Urine Appearance Clear (Clear) 08/17/22 20:26 Urine pH 5.5 (5.0-8.0) 08/17/22 20:26 Ur Specific [place] 1.021 (1.001-1.035) 08/17/22 20:26 Urine Protein Trace (Negative) H 08/17/22 20:26 Urine Glucose (UA) Negative (Negative) 08/17/22 20:26 Urine Ketones Negative (Negative) 08/17/22 20:26 Urine Blood Negative (Negative) 08/17/22 20:26 Urine Nitrite Negative (Negative) 08/17/22 20:26 Urine Bilirubin Negative (Negative) 08/17/22 20:26 Urine Urobilinogen <2.0 mg/dL (<2.0) 08/17/22 20:26 Ur Leukocyte Esterase Trace (Negative) H 08/17/22 20:26 Urine RBC 1 /hpf (0-5) 08/17/22 20:26 Urine WBC 10 /hpf (0-5) H 08/17/22 20:26 Urine Bacteria Rare /hpf (None) H 08/17/22 20:26 Urine Mucus Moderate /hpf (None) H 08/17/22 20:26 Urine Opiates Screen Not Detected (NotDetected) 08/17/22 20:26 Ur Oxycodone Screen Not Detected (NotDetected) 08/17/22 20:26 Urine Methadone Screen Not Detected (NotDetected) 08/17/22 20:26 Ur Propoxyphene Screen Not Detected (NotDetected) 08/17/22 20:26 Ur Barbiturates Screen Not Detected (NotDetected) 08/17/22 20:26 U Tricyclic Antidepress Detected (NotDetected) H 08/17/22 20:26 Ur Phencyclidine Scrn Not Detected (NotDetected) 08/17/22 20:26 Ur Amphetamines Screen Not Detected (NotDetected) 08/17/22 20:26 U Methamphetamines Scrn Not Detected (NotDetected) 08/17/22 20:26 U Benzodiazepines Scrn Not Detected (NotDetected) 08/17/22 20:26 Urine Cocaine Screen Not Detected (NotDetected) 08/17/22 20:26 U Marijuana (THC) Screen Detected (NotDetected) H 08/17/22 20:26 Coronavirus (PCR) Not Detected (Not Detectd) 08/17/22 20:15 08/18/22 10:41 IDENTIFYING DATA: Patient is a 67-year-old male, currently residing in a motel and presented to the ED for evaluation of depression and suicidal thoughts. HPI: Patient presented to the hospital yesterday complaining of depression and suicidal thoughts. Patient was endorsing a plan of wanting to jump into the river. He claims that he was just discharged from the [facility] yesterday and came to the ER. He claims that he has been treated there for diverticulitis. Patient's urine drug screen was positive for TCAs and THC. Patient was discharged from the mental health unit 1 week ago. Patient claims that he was not able to get his prescription filled. He was discharged on Seroquel, Cymbalta, lithium and Remeron. Patient was seen in the hallways yelling at staff members. Patient was seen lying in his bed today and briefly agreeable to speak with the sign writer hand. He appeared to be fairly frustrated and upset. He was yelling during the interview. He claims that he was feeling depressed and "don't want to live anymore" and also states that he is "tired of being sick". He had a low frustration tolerance. Very poor insight and judgment. He states that he was not able to get his scripts filled. He continues to endorse pain which is chronic and ongoing. Patient seems that he is having suicidal thoughts, no intent or plan. Denies any homicidal ideations. At this time patient denies any auditory or visual hallucinations. Patient denies any flight of ideas racing thoughts and increased in goal directed behavior. Patient admits to using marijuana and cigarettes daily. PAST PSYCHIATRIC HISTORY: Patient has a history of major depressive disorder and cannabis use disorder. . She was previously on Seroquel, Cymbalta and lithium. Patient was recently psychiatrically hospitalized in the mental health unit 1 week ago. Patient denies any psychiatric outpatient follow-up. Patient denies any history of suicide attempts in the past. Past Medical History: Chest Pain / Angina, Heart Failure, COPD, CVA/TIA, Memory Impairment Additional Past Medical History / Comment(s): pt reports last CVA was in 2019. History of Any Multi-Drug Resistant Organisms: None Reported Past Surgical History: Heart Catheterization With Stent Additional Past Surgical History / Comment(s): pt reports pacemaker placed in 2019 and triple bypass in 2018 Past Anesthesia/Blood Transfusion Reactions: No Reported Reaction Date of Last Stent Placement:: 2014 Type of Cardiac Device: Permanent Pacemaker Device Placement Date:: 2019 Past Psychological History: No Psychological Hx Reported Smoking Status: Current every day smoker Past Alcohol Use History: Rare Past Drug Use History: None Reported ALLERGIES: as per EMR CHEMICAL DEPENDENCY HISTORY: as per HPI FAMILY PSYCHIATRIC/SUBSTANCE USE HISTORY: denies SOCIAL HISTORY: Patient was gaurded about this and did not respond. MENTAL STATUS EXAM: General Appearance: Patient appears to be tall, disheveled appearance, long hair, stated age is lethargic, yelling and upset. Patient appears to have poor hygiene and grooming. Behavior: Patient is laying in the bed, agitated and upset. Speech: Patient's speech is loud, yelling. Demanding. Mood/Affect: Patient reports their mood is depressed, affect is congruent Suicidality/Homicidality: Patient denies having any homicidal ideation intent or plan. Admits to suicidal thoughts, no intent or plan. Perceptions: Patient denies any visual hallucinations and denies any auditory hallucinations Though content/process: [place], demanding. No delusions. Memory and concentration: AOX3, grossly intact for the purposes of this session. Judgment and insight: poor STRENGTHS/WEAKNESSES: strength is that patient is resilient. Weakness is that patient has poor judgment and is impulsive INTELLECT: average IMPRESSIONS: Major depressive disorder without psychotic features Cannabis use disorder nicotine dependence PLAN: -Patient is admitted under as a voluntary status to MHU for stabilization of psychiatric symptoms and safety. Patient has not signed adult voluntary form and is placed in patient's chart. -Medications : Will start patient on remeron 15 mg qhs for sleep/mood, seroquel 200 mg qhs for insomnia/mood adjunct, cymbalta 60 mg daily for mood/pain, lit hium 300 mg big for mood adjunct. -zyprexa PRN for agitation/aggression -Patient was counselled on substance abuse and desired to cut back on use -Patient was informed of the risks, benefits and side effects of the medication -Internal Medicine consult to perform medical evaluation and physical. -NRT - nicotine patch -SW on board for discharge planning. Encourage patient to participate in groups to work on coping skills. 08/18/22 11:46
[2022-08-18] MEDS: DULoxetine HCL 60 MG CAPSULE.DR PO SCH (13:34)
[2022-08-18] MEDS: MIRTAZAPINE 15 MG TAB PO SCH (20:42)
[2022-08-18] MEDS: QUEtiapine 200 MG TAB PO SCH (20:42)
[2022-08-18] MEDS: TAMSULOSIN 0.4 MG CAP.ER.24H PO SCH (20:43)
[2022-08-18] MEDS: ATORVASTATIN 40 MG TAB PO SCH (20:43)
[2022-08-18] MEDS ORDERED: MIRTAZAPINE 15 MG TAB PO SCH (21:00)
[2022-08-18] MEDS ORDERED: TAMSULOSIN 0.4 MG CAP.ER.24H PO SCH (21:44)
--- NOTE | 2022-08-19 02:32 | P.MDCNMH ---
History of Present Illness H&P Date: 08/18/22 Chief Complaint: medical eval 67 year old male with hypertension , CHF< COPD, h/o CVA patient was recently hospitalized at our facility in the MHU , then he reports that he was at [facility] since Monday where he was treated for acute diverticulitis and was discharged yesterday. he still reports some abd pain ,lower abd 5/10 in severity , dull achy pain , reports some associated diarrhea but no bleeding , denies urinary changes. his abd pain got worse today after eating dinner. he otherwise denies fever, chills, chest pain , nausea or vomiting , denies URI symptoms he came in for evaluation regarding depression and suicidal ideation patient has poor insight otherwise regarding his past medical history Review of Systems Pertinent positives as noted in HPI. All other systems were reviewed and are negative Past Medical History Past Medical History: Chest Pain / Angina, Heart Failure, COPD, CVA/TIA, Memory Impairment Additional Past Medical History / Comment(s): pt reports last CVA was in 2019. History of Any Multi-Drug Resistant Organisms: None Reported Past Surgical History: Heart Catheterization With Stent Additional Past Surgical History / Comment(s): pt reports pacemaker placed in 2019 and triple bypass in 2018 Past Anesthesia/Blood Transfusion Reactions: No Reported Reaction Date of Last Stent Placement:: 2014 Type of Cardiac Device: Permanent Pacemaker Device Placement Date:: 2019 Past Psychological History: No Psychological Hx Reported Smoking Status: Current every day smoker Past Alcohol Use History: Rare Past Drug Use History: None Reported - Past Family History Mother Family Medical History: Diabetes Mellitus Father Family Medical History: AFIB, Hypertension Medications and Allergies Home Medications Medication Instructions Recorded Confirmed Type Albuterol Sulfate [Albuterol 2 puff PO RT-Q6H PRN 07/27/22 08/17/22 History Sulfate Hfa] HYDROcodone/APAP 5-325MG [[place] 1 tab PO Q8H PRN 07/27/22 08/17/22 History 5-325] Apixaban [Eliquis] 5 mg PO BID 30 Days tab 08/09/22 08/17/22 Rx Atorvastatin [Lipitor] 40 mg PO HS 30 Days tab 08/09/22 08/17/22 Rx DULoxetine HCL [Cymbalta] 90 mg PO DAILY 30 Days cap 08/09/22 08/17/22 Rx Gabapentin [Neurontin] 400 mg PO TID 3 Days cap 08/09/22 08/17/22 Rx [place] Carbonate 300 mg PO BID 30 Days cap 08/09/22 08/17/22 Rx Mirtazapine [Remeron] 15 mg PO HS 30 Days tab 08/09/22 08/17/22 Rx QUEtiapine FUMARATE [SEROquel] 200 mg PO HS 30 Days tab 08/09/22 08/17/22 Rx Tamsulosin HCl [Flomax] 0.4 mg PO HS 30 Days cap 08/09/22 08/17/22 Rx carvediloL [Coreg] 6.25 mg PO BID 30 Days tab 08/09/22 08/17/22 Rx dilTIAZem HCL 30 mg PO TID 30 Days tab 08/09/22 08/17/22 Rx metOLazone [Zaroxolyn] 5 mg PO DAILY 30 Days tab 08/09/22 08/17/22 Rx Allergies Allergy/AdvReac Type Severity Reaction Status Date / Time sulfamethoxazole Allergy Swelling Verified 08/17/22 18:04 [From Bactrim] trimethoprim [From Bactrim] Allergy Swelling Verified 08/17/22 18:04 venom-honey bee Allergy Unknown Verified 08/17/22 18:04 Physical Exam Vitals: Vital Signs Temp Pulse Pulse Resp BP BP Pulse Ox 08/18/22 20:47 69 18 112/67 08/18/22 06:32 97.9 F 68 16 90/56 08/17/22 23:01 97.8 F 90 19 122/83 98 08/17/22 22:00 68 16 118/78 97 Intake and Output 08/18/22 08/18/22 08/18/22 06:59 14:59 22:59 Other: Weight 120.23 kg Constitutional: No acute distress, Eyes: Anicteric sclerae, moist conjunctiva, Pupils equal round reactive to light ENMT: NC/AT Oropharynx clear, no erythema, or exudates Neck: Supple, no masses, or JVD No carotid bruits No thyromegaly Lungs: Clear to auscultation Clear to percussion Normal respiratory effort, no accessory muscle use Cardiovascular: Heart regular in rate and rhythm, No murmurs, gallops, or rubs trace bilateral leg edema Abdominal: Soft discomfort to deep palpation over the lower abd, no guarding, rebound or rigidity Abdomen moving with respiration Normoactive bowel sounds Skin: Normal temperature, tone, texture, turgor Extremities: No digital cyanosis No clubbing Pedal pulses intact and symmetrical Radial pulses intact and symmetrical No calf tenderness Psychiatric: Alert and oriented to person, place and time Neuro Muscles Strength 5/5 in bilateral upper extremity , 4/5 over bilateral lower extremity Sensation to light touch grossly present throughout Cranial nerves II-XII grossly intact Lymphatics: no palpable cervical or supraclavicular lymph nodes Cranial Nerve Examination - Cranial Nerves Cranial Nerve II- Optic: Intact Cranial Nerve III- Oculomotor: Intact Cranial Nerve IV- Trochlear: Intact Cranial Nerve V- Trigeminal: Intact Cranial Nerve - Abducens: Intact Cranial Nerve VII- Facial: Intact Cranial Nerve VIII- Auditory: Intact Cranial Nerve IX- Glossopharyngeal: Intact Cranial Nerve X- Vagus: Intact Cranial Nerve XI- Accessory: Intact Cranial Nerve XII- Hypoglossal: Intact Results Labs: Abnormal Lab Results - Last 24 Hours (Table) 08/17/22 08/17/22 Range/Units 20:26 20:26 Urine Protein Trace H (Negative) Ur Leukocyte Esterase Trace H (Negative) Urine WBC 10 H (0-5) /hpf Urine Bacteria Rare H (None) /hpf Urine Mucus Moderate H (None) /hpf U Tricyclic Antidepress Detected H (NotDetected) U Marijuana (THC) Screen Detected H (NotDetected) Assessment and Plan Assessment: recent episode of acute diverticulitis continue with augmentin to finish at least a 10 day course change diet to full liquid diet symptomatic control of pain monitor vital signs notify [facility] if pain increases after breakfast in AM follow up on CBC depression suicidal ideation mangement per psych chronic conditions hypertension COPD CHF , unknown EF patient on anticoagulation , patient not sure why , he is not compliant with his meds. prior notes has some inconsistency , one mentions afib and the other mention a blood clot as a reason for blood thinners. obtain records or clarify with patient when he is more cooperative resume home medications follow up CBC , BMP monitor for improvement of symptoms of diverticulitis full liquid diet verify why patient taking Eliquis once he is more cooperative thank you for your consultation
[2022-08-19] MEDS: AMOXIC-POT CLAV 875-125MG 1 EACH TAB PO SCH ×2 (08:14→20:09)
[2022-08-19] MEDS: DULoxetine HCL 60 MG CAPSULE.DR PO SCH (08:14)
[2022-08-19] MEDS: APIXABAN 5 MG TAB PO SCH ×2 (08:15→20:09)
[2022-08-19] MEDS: carvediloL 6.25 MG TAB PO SCH ×2 (08:15→20:09)
[2022-08-19] MEDS: GABAPENTIN 400 MG CAP PO SCH ×3 (08:15→20:09)
[2022-08-19] MEDS: LITHIUM CARBONATE 300 MG CAP PO SCH ×2 (08:15→20:10)
[2022-08-19] MEDS: metOLazone 5 MG TAB PO SCH (08:16)
[2022-08-19] MEDS: PANTOPRAZOLE 40 MG TABLET PO SCH ×2 (08:16→18:20)
[2022-08-19] MEDS: DILTIAZEM ORAL 30 MG TAB PO SCH ×3 (08:16→20:10)
[2022-08-19] MEDS: NICOTINE 14MG/24HR PATCH TRANSDERM SCH (08:17)
[2022-08-19 08:18] LABS: Basophils # (A) 0.1 k/uL (0-0.2); Basophils % (A) 1 %; Eosinophils # (A) 0.5 k/uL (0-0.7); Eosinophils % (A) 9 %; HCT 37.3 % (39.0-53.0); Lymphocytes # (A) 1.3 k/uL (1.0-4.8); Lymphocytes % (A) 24 %; MCH 32.8 pg (25.0-35.0); MCHC 34.9 g/dL (31.0-37.0); Mean Platelet Volume 8.3; Monocytes # (A) 0.3 k/uL (0-1.0); Monocytes % (A) 5 %; Neutrophils # (A) 3.1 k/uL (1.3-7.7); Neutrophils % (A) 58 %; Platelet Count 158 k/uL (150-450); RBC 3.97 m/uL (4.30-5.90); RDW 13.6 % (11.5-15.5); WBC 5.3 k/uL (3.8-10.6)
[2022-08-19 08:23] LABS: ALT 40 U/L (4-49); AST 37 U/L (17-59); African American GFR (CKD) >90 (>60 ml/min/1.73 sqM); Albumin 3.2 g/dL (3.5-5.0); Alkaline Phosphatase 64 U/L (38-126); Anion Gap 5 mmol/L; Blood Urea Nitrogen <2 mg/dL (9-20); Calcium 8.3 mg/dL (8.4-10.2); Carbon Dioxide 25 mmol/L (22-30); Chloride 107 mmol/L (98-107); Glucose 101 mg/dL (74-99); Non-African American GFR(CKD) 81 (>60 ml/min/1.73 sqM); Potassium 3.6 mmol/L (3.5-5.1); Sodium 137 mmol/L (137-145); Total Bilirubin 0.4 mg/dL (0.2-1.3); Total Protein 6.2 g/dL (6.3-8.2)
[2022-08-19 09:46] LABS: Lithium 0.4 mmol/L
--- NOTE | 2022-08-19 13:46 | P.PN ---
Progress Note - Text Progress Note Date: 08/19/22 Interval History: Patient was seen [wandering the hallways] after lunch and was directable and a greeable to speak with parts data writer in the office. Patient continues to be irritable at times and argumentative. He continues to catastrophize stating things like "I just dont feel like living anymore". He continues to endorse suicidal thoughts however did not mention any specific plan. He claims that he is still feeling depressed and also endorsing anxiety, does claim that the pain has gone better. He claims that he is tired of his medical comorbidities and physical limitations. States that he slept about 3 hours last night. At this time patient denies any homical ideations, intent or plan. Patient denies any auditory, visual hallucinations and denies any paranoia or delusions. Patient denies any side effects from the medications and has been compliant with meds. Mental Status Exam: General Appearance: Patient appears to be tall, disheveled appearance, long hair, stated age is alert, less irritable but appears upset. Patient appears to have mildly improving hygiene and grooming. Behavior: Patient is laying in the bed, less agitated Speech: Patient's speech is do. Demanding Mood/Affect: Patient reports their mood is depressed, affect is congruent and constricted Suicidality/Homicidality: Patient denies having any homicidal ideation intent or plan. continues to endorse suicidal thoughts, no plan. Perceptions: Patient denies any visual hallucinations and denies any auditory hallucinations Though content/process: [place], demanding. No delusions. Memory and concentration: AOX3, grossly intact for the purposes of this session. Judgment and insight: poor, improving mildly IMPRESSIONS: Major depressive disorder without psychotic features Cannabis use disorder nicotine dependence Plan: -Patient continues to meet criteria for inpatient psychiatric admission for s ymptom stabilization and safety. Patient has signed [adult voluntary form and] was placed in patient's chart. -Medications: [Increased][place] 30 mg qhs for sleep/mood, seroquel 200 mg qhs for insomnia/mood adjunct, increase cymbalta 90 mg daily for mood/pain, lithium 300 mg big for mood adjunct. -zyprexa PRN for agitation/aggression -When necessary Ativan and Haldol for agitation/aggression. -NRT - [nicotine patch] -SW on board for discharge planning. Encouraged the patient to participate in milieu. Likely discharge early next week to snf versus motel.
[2022-08-19] MEDS: TAMSULOSIN 0.4 MG CAP.ER.24H PO SCH (20:09)
[2022-08-19] MEDS: ATORVASTATIN 40 MG TAB PO SCH (20:09)
[2022-08-19] MEDS: QUEtiapine 200 MG TAB PO SCH (20:09)
[2022-08-19] MEDS: MIRTAZAPINE 15 MG TAB PO SCH (20:10)
[2022-08-20] MEDS: AMOXIC-POT CLAV 875-125MG 1 EACH TAB PO SCH ×2 (08:40→20:48)
[2022-08-20] MEDS: LITHIUM CARBONATE 300 MG CAP PO SCH ×2 (08:40→20:48)
[2022-08-20] MEDS: DULoxetine HCL 30 MG CAPSULE.DR PO SCH (08:40)
[2022-08-20] MEDS: DILTIAZEM ORAL 30 MG TAB PO SCH ×3 (08:40→20:48)
[2022-08-20] MEDS: APIXABAN 5 MG TAB PO SCH ×2 (08:40→20:48)
[2022-08-20] MEDS: carvediloL 6.25 MG TAB PO SCH ×2 (08:40→20:48)
[2022-08-20] MEDS: metOLazone 5 MG TAB PO SCH (08:40)
[2022-08-20] MEDS: NICOTINE 14MG/24HR PATCH TRANSDERM SCH (08:41)
[2022-08-20] MEDS: PANTOPRAZOLE 40 MG TABLET PO SCH ×2 (08:41→16:30)
[2022-08-20] MEDS: GABAPENTIN 400 MG CAP PO SCH ×3 (08:41→20:49)
--- NOTE | 2022-08-20 16:30 | P.PN ---
Subjective Progress Note Date: 08/20/22 Principal diagnosis: PRogress note He was seen today face to face in his bedroom He did not want to leave the rooom and chose to have a brief encounter with me regardiing update. Jarocho perez was lucid and talked abou his hospitalization for his diverticulis from which he recovered relatively uneventfully prior to his psychiatric admission for his psychotic derpession. He continued to ruminate over his theme of hopelesslness but short of endorsing any suicidal or homicidal ideaiton. in reviewing his Rx, he was on augmentation Rx combing Cymbalt targeting his pain syndrome with no furthe complaint of any adverse events. I did not make any suggestion in view of his recent recovery in view of his antiderpessant augmentation . Diagnosis: Major Depression with psychotic features, moderate severity. cogntiive status to be fuerther evalauted MSE: He was resting quietly in bed . He spoke coherently and politely acknowledging my visit to his room . He was peoccupedi somewhat with his somatic medical history of diverticulis without vociing any GI symptoms. He did not accept his sense of relief from his medical condtions. His affect was moderatley blunted congruent with thought content, with his preoccupation with the theme of hopelessness with no suicidla or homicidal ideation. No hallucinations No parnaoid or grandiose delusons or ideas of reference. Cog; he was oriented with marginal insight into his psychiatric condtion. Management Plan 1. Continue current Rx. monitor GI and pain comorbid condition Reassess pt tomorrow regarding his negative cognitive schema and whether further Rx treatment would be warranted 3. He was encouraged to participate in social [employer] Objective - Vital Signs Vital signs: Vital Signs Temp 98.2 F 08/20/22 06:00 Pulse 92 08/20/22 08:43 Resp 18 08/20/22 06:00 BP 92/64 08/20/22 08:43 Pulse Ox 98 08/20/22 06:00 FiO2 - Labs CBC & Chem 7: 08/19/22 07:49 08/19/22 07:49
[2022-08-20] MEDS: TAMSULOSIN 0.4 MG CAP.ER.24H PO SCH (20:48)
[2022-08-20] MEDS: MIRTAZAPINE 15 MG TAB PO SCH (20:48)
[2022-08-20] MEDS: QUEtiapine 200 MG TAB PO SCH (20:48)
[2022-08-20] MEDS: ATORVASTATIN 40 MG TAB PO SCH (20:48)
[2022-08-21] MEDS: PANTOPRAZOLE 40 MG TABLET PO SCH ×2 (08:33→15:35)
[2022-08-21] MEDS: AMOXIC-POT CLAV 875-125MG 1 EACH TAB PO SCH ×2 (08:33→20:46)
[2022-08-21] MEDS: carvediloL 6.25 MG TAB PO SCH ×2 (08:34→20:46)
[2022-08-21] MEDS: DULoxetine HCL 30 MG CAPSULE.DR PO SCH (08:34)
[2022-08-21] MEDS: GABAPENTIN 400 MG CAP PO SCH ×3 (08:34→20:46)
[2022-08-21] MEDS: DILTIAZEM ORAL 30 MG TAB PO SCH ×3 (08:34→20:45)
[2022-08-21] MEDS: APIXABAN 5 MG TAB PO SCH ×2 (08:34→20:46)
[2022-08-21] MEDS: NICOTINE 14MG/24HR PATCH TRANSDERM SCH (08:35)
[2022-08-21] MEDS: LITHIUM CARBONATE 300 MG CAP PO SCH ×2 (08:35→20:45)
[2022-08-21] MEDS: metOLazone 5 MG TAB PO SCH (08:35)
[2022-08-21] MEDS: ATORVASTATIN 40 MG TAB PO SCH (20:45)
[2022-08-21] MEDS: MIRTAZAPINE 15 MG TAB PO SCH (20:45)
[2022-08-21] MEDS: QUEtiapine 200 MG TAB PO SCH (20:46)
[2022-08-21] MEDS: TAMSULOSIN 0.4 MG CAP.ER.24H PO SCH (20:46)
--- NOTE | 2022-08-21 21:25 | P.PN ---
Subjective Progress Note Date: 08/21/22 Principal diagnosis: progress note He was ssen today more active and verbal despite his need to use the walker. HE was in a better spirit and was eager to go to be reinterated to t he commmunity. HE did not complain of any GI symptms and appeared to leave his diverticulis hospitalization behind him. Ovelll functioning level has improved appeitte was good no complaint of sleep. He was not seen lying in bed and egaged readily with unit staff . diag; MDD improved sustained. No adverse events in Rx. Plan: ready to be discharged by Monday-Monday after his meeting with attending follow up with case management manager to mobilize resources. to encourage him to engarge upon his support network. Maintenace therapy with his Rx important for relepse prevention Objective - Vital Signs Vital signs: Vital Signs Temp 98 F 08/21/22 06:34 Pulse 93 08/21/22 08:37 Resp 18 08/21/22 08:37 BP 98/66 08/21/22 08:37 Pulse Ox 97 08/21/22 06:34 FiO2 Intake & Output 08/21/22 08/21/22 08/22/22 06:59 18:59 06:59 Weight 120.23 kg - Labs CBC & Chem 7: 08/19/22 07:49 08/19/22 07:49
[2022-08-22 07:00] VITALS: RESP 16
[2022-08-22] MEDS: GABAPENTIN 400 MG CAP PO SCH ×3 (10:34→21:00)
[2022-08-22] MEDS: PANTOPRAZOLE 40 MG TABLET PO SCH ×2 (10:34→13:42)
[2022-08-22] MEDS: APIXABAN 5 MG TAB PO SCH ×2 (10:35→21:00)
[2022-08-22] MEDS: AMOXIC-POT CLAV 875-125MG 1 EACH TAB PO SCH ×2 (10:35→20:59)
[2022-08-22] MEDS: carvediloL 6.25 MG TAB PO SCH ×2 (10:35→21:01)
[2022-08-22] MEDS: metOLazone 5 MG TAB PO SCH (10:36)
[2022-08-22] MEDS: DULoxetine HCL 30 MG CAPSULE.DR PO SCH (10:36)
[2022-08-22] MEDS: LITHIUM CARBONATE 300 MG CAP PO SCH ×2 (10:36→21:00)
[2022-08-22] MEDS: DILTIAZEM ORAL 30 MG TAB PO SCH ×3 (10:36→20:58)
--- NOTE | 2022-08-22 12:01 | P.PN ---
Progress Note - Text Progress Note Date: 08/22/22 Interval History: Patient was seen laying in bed today in the morning and was agreeable speech eliezer gunderson. He appears to be less argumentative today and less irritable. He was more directable today during conversation. She states that he is tired of his "legs hurting" and states that he does not know where he wants go when he is discharged. He claims at the motel is going to be too costly for him and states that he would rather go to a group home. He claims that along when he would like to go to a room and board. He continues to endorse suicidal thoughts however it appears to be passive and feelting ideas, did not mention any specific plan. He claims that he is tired of his medical comorbidities and physical limitations. States that he slept about 3-4 hours last night. At this time patient denies any homical ideations, intent or plan. Patient denies any auditory, visual hallucinations and denies any paranoia or delusions. Patient denies any side effects from the medications and has been compliant with meds. Mental Status Exam: General Appearance: Patient appears to be tall, disheveled appearance, long hair, stated age is alert, more directable today. Patient appears to have mildly improving hygiene and grooming. Behavior: Patient is laying in the bed, less agitated. more directable Speech: Patient's speech is fluent, non pressured Mood/Affect: Patient reports their mood is depressed, imprivjg mildly is congruent Suicidality/Homicidality: Patient denies having any homicidal ideation intent or plan. continues to endorse fleeting suicidal thoughts, no plan. Perceptions: Patient denies any visual hallucinations and denies any auditory hallucinations Though content/process: [place], no paranoia. No delusions. Memory and concentration: AOX3, grossly intact for the purposes of this session. Judgment and insight: poor, improving mildly IMPRESSIONS: Major depressive disorder without psychotic features Cannabis use disorder nicotine dependence Plan: -Patient continues to meet criteria for inpatient psychiatric admission for symptom stabilization and safety. Patient has signed adult voluntary form and was placed in patient's chart. -Medications: remeron 30 mg qhs for sleep/mood, seroquel 200 mg qhs for insomnia/mood adjunct, increase cymbalta 60 mg bid for mood/pain, lithium 300 mg big for mood adjunct. added melatonin 10 mg qhs for sleep. -zyprexa PRN for agitation/aggression -When necessary Ativan and Haldol for agitation/aggression. -NRT - nicotine patch -SW on board for discharge planning. Encouraged the patient to participate in milieu. Likely discharge in 1-2 days to either room and board vs group home.
[2022-08-22] MEDS: MELATONIN 5 MG TABLET PO SCH (20:58)
[2022-08-22] MEDS: MIRTAZAPINE 15 MG TAB PO SCH (20:58)
[2022-08-22] MEDS: ATORVASTATIN 40 MG TAB PO SCH (20:59)
[2022-08-22] MEDS: TAMSULOSIN 0.4 MG CAP.ER.24H PO SCH (20:59)
[2022-08-22] MEDS: QUEtiapine 200 MG TAB PO SCH (20:59)
[2022-08-23] MEDS: DILTIAZEM ORAL 30 MG TAB PO SCH ×3 (08:28→20:42)
[2022-08-23] MEDS: carvediloL 6.25 MG TAB PO SCH ×2 (08:28→20:41)
[2022-08-23] MEDS: DULoxetine HCL 60 MG CAPSULE.DR PO SCH ×2 (08:28→20:41)
[2022-08-23] MEDS: LITHIUM CARBONATE 300 MG CAP PO SCH ×2 (08:28→20:41)
[2022-08-23] MEDS: metOLazone 5 MG TAB PO SCH (08:28)
[2022-08-23] MEDS: APIXABAN 5 MG TAB PO SCH ×2 (08:28→20:41)
[2022-08-23] MEDS: AMOXIC-POT CLAV 875-125MG 1 EACH TAB PO SCH ×2 (08:28→20:40)
[2022-08-23] MEDS: GABAPENTIN 400 MG CAP PO SCH ×3 (08:28→20:42)
[2022-08-23] MEDS: PANTOPRAZOLE 40 MG TABLET PO SCH ×2 (08:29→16:20)
--- NOTE | 2022-08-23 12:55 | P.PN ---
Progress Note - Text Progress Note Date: 08/23/22 Interval History: Patient was seen laying in bed today in the morning and was agreeable speech eliezer gunderson. Patient appears to be more directable today during conversation and appropriate. He states that he "got into it" with another patient that apparently was "following me around". He claims that he has been trying to avoid this other patient however he does not trust him. He states that he has been trying to as well tell staff members about this but he states that "they're not listening to me". He does appear to have an improvement in his affect today. He states that his mood has been improving since being on the medications. Claims that he continues to struggle with sleep however did claim to get about 4 hours last night. We spoke more about discharge planning and given the different options, patient states that he would most likely like to call room and boards today and if not then would rather go to a intermediate versus going to the motel again. I'm that he has been going to some groups. Even he states that he has an improvement in his appetite. At this time patient denies any homical ideations, intent or plan. Things at the suicidal thoughts have been improving. Patient denies any auditory, visual hallucinations and denies any paranoia or delusions. Patient denies any side effects from the medications and has been compliant with meds. Mental Status Exam: General Appearance: Patient appears to be tall, disheveled appearance, long hair, stated age is alert, more directable today. Patient appears to have mildly improving hygiene and grooming. Behavior: Patient is laying in the bed, less agitated. more directable Speech: Patient's speech is fluent, non pressured Mood/Affect: Patient reports their mood is imprivjg mildly is congruent and brighter Suicidality/Homicidality: Patient denies having any homicidal ideation intent or plan. Things at the suicidal thoughts are improving, no intent or plan. Perceptions: Patient denies any visual hallucinations and denies any auditory hallucinations Though content/process: [place], no paranoia. No delusions. Memory and concentration: AOX3, grossly intact for the purposes of this session Judgment and insight: poor, improving mildly IMPRESSIONS: Major depressive disorder without psychotic features Cannabis use disorder nicotine dependence Plan: -Patient continues to meet criteria for inpatient psychiatric admission for symptom stabilization and safety. Patient has signed adult voluntary form and was placed in patient's chart. -Medications: remeron 30 mg qhs for sleep/mood, seroquel 200 mg qhs for insomnia/mood adjunct, cymbalta 60 mg bid for mood/pain, lithium 300 mg big for mood adjunct. melatonin 10 mg qhs for sleep. -zyprexa PRN for agitation/aggression -When necessary Ativan and Haldol for agitation/aggression. -NRT - nicotine patch -SW on board for discharge planning. Encouraged the patient to participate in milieu. Likely discharge tomorrow to either room and board vs intermediate in [facility]. patient has been given numbers for room and boards.
[2022-08-23] MEDS: MELATONIN 5 MG TABLET PO SCH (20:41)
[2022-08-23] MEDS: ATORVASTATIN 40 MG TAB PO SCH (20:41)
[2022-08-23] MEDS: MIRTAZAPINE 15 MG TAB PO SCH (20:42)
[2022-08-23] MEDS: TAMSULOSIN 0.4 MG CAP.ER.24H PO SCH (20:42)
[2022-08-23] MEDS: QUEtiapine 200 MG TAB PO SCH (20:42)
[2022-08-24 07:06] VITALS: TEMP 98
[2022-08-24] MEDS: PANTOPRAZOLE 40 MG TABLET PO SCH (08:21)
[2022-08-24] MEDS: GABAPENTIN 400 MG CAP PO SCH (08:22)
[2022-08-24] MEDS: DILTIAZEM ORAL 30 MG TAB PO SCH (08:22)
[2022-08-24] MEDS: DULoxetine HCL 60 MG CAPSULE.DR PO SCH (08:22)
[2022-08-24] MEDS: carvediloL 6.25 MG TAB PO SCH (08:22)
[2022-08-24] MEDS: metOLazone 5 MG TAB PO SCH (08:22)
[2022-08-24] MEDS: LITHIUM CARBONATE 300 MG CAP PO SCH (08:22)
[2022-08-24] MEDS: APIXABAN 5 MG TAB PO SCH (08:23)
[2022-08-24 08:26] VITALS: BP 101/61; PULSE 84
--- NOTE | 2022-08-24 10:12 | P.DS ---
Providers Date of admission: 08/17/22 21:04 Expected date of discharge: 08/24/22 Attending physician: Pete Jeff MD Consults: 08/17/22 21:28 Consult Physician Routine Consulting Provider: Eduardo Handy Consult Reason/Comments: H&P Do you want consulting provider notified?: Yes Primary care physician: Stated None - Discharge Diagnosis(es) (1) Cannabis use disorder Current Visit: Yes Status: Acute Priority: Medium (2) Nicotine dependence Current Visit: Yes Status: Acute Priority: Low (3) Homelessness Current Visit: Yes Status: Acute Priority: High (4) Depressive disorder Current Visit: Yes Status: Acute Priority: High Hospital Course: Admission HPI: Admission note was completed by publications writer "Patient is a 67-year-old male, currently residing in a motel and presented to the ED for evaluation of depression and suicidal thoughts. Patient presented to the hospital yesterday complaining of depression and suicidal thoughts. Patient was endorsing a plan of wanting to jump into the river. He claims that he was just discharged from the [facility] yesterday and came to the ER. He claims that he has been treated there for diverticulitis. Patient's urine drug screen was positive for TCAs and THC. Patient was discharged from the mental health unit 1 week ago. Patient claims that he was not able to get his prescription filled. He was discharged on Seroquel, Cymbalta, lithium and Remeron. Patient was seen in the hallways yelling at staff members. Patient was seen lying in his bed today and briefly agreeable to speak with the publications writer. He appeared to be fairly frustrated and upset. He was yelling during the interview. He claims that he was feeling depressed and "don't want to live anymore" and also states that he is "tired of being sick". He had a low frustration tolerance. Very poor insight and judgment. He states that he was not able to get his scripts filled. He continues to endorse pain which is chronic and ongoing. Patient seems that he is having suicidal thoughts, no intent or plan. Denies any homicidal ideations. At this time patient denies any auditory or visual hallucinations. Patient denies any flight of ideas racing thoughts and increased in goal directed behavior. Patient admits to using marijuana and cigarettes daily." Hospital course: Upon admission to the unit patient was directable and agreeable to commence treatment and signed adult voluntary form. Patient was initially hostile, irritable however with time and treatment patient got along well with other patients on the unit and followed unit protocol. Patient was compliant with the medications and denied any side effects throughout hospital course. Patient was started on Remeron 30 mg daily at bedtime for sleep/mood/appetite, Seroquel 200 mg daily at bedtime for insomnia/mood adjunct, Cymbalta 60 mg twice a day for mood/pain/anxiety, lithium 300 mg twice a day for mood adjunct. Melatonin 10 mg daily at bedtime for sleep. Patient spoke of his stressors and engaged in therapy both group and individual. Patient was also seen by medical team for history and physical exam. Throughout the course of the hospitalization patient gradually improved with regards to mood, anxiety, suicidal thoughts, sleep and returned back to their baseline level of functioning. On the day of discharge patient denied any suicidal or homicidal ideations intent or plan denied any auditory or visual hallucinations. Patient endorsed wanting to live for his health and to find housing. The patient denied any access to guns or weapons. Patient denied any paranoia and did not endorse any delusions. Patient does have a significant history of substance abuse and was counseled on abstaining from all substances including alcohol and marijuana. Patient was offered however declined inpatient substance-abuse rehab. Patient was also counseled on the medications and need for regular compliance and was encouraged to follow-up with their outpatient appointment for mental health and also for primary care. Patient was given room and board numbers to call however was not able to find a bed locally. He did not want to return to the [facility] and opted to go to a senior care in [place]. Mental status exam: General Appearance: Patient appears to be tall, longer hair, [place], stated age is alert, directable, and cooperative. Patient is in no acute distress and has improved hygiene and grooming Behavior: Patient is calmly seated without any agitated behavior. more directable today Speech: Patient's speech is fluent and nonpressured. Mood/Affect: Patient reports their mood is "alright", affect is congruent Suicidality/Homicidality: Patient denies having any suicidal or homicidal ideation intent or plan. Perceptions: Patient denies any auditory or visual hallucinations. Though content/process: There is no evidence of any delusional thought content and thought process is linear and goal-directed. more future oriented Memory and concentration: AOX3, grossly intact for the purposes of this session. Can spell "WORLD" backwards correctly. Judgment and insight: chronically poor, however has improved with guarded prognosis Impression: depressive disorder unspecified r/o bipolar depression Cannabis use disorder Homelessness Nicotine dependence Plan: -Continue with discharge today as patient has improved and stabilized psychiatrically and is not currently an imminent threat to himself and/or others. Patient will remain at chronically elevated risk for harm to self and/or others due to his impulsivity and substance abuse. -Continue medications: Continue Remeron 30 mg daily at bedtime for sleep/mood/appetite, Seroquel 200 mg daily at bedtime for insomnia/mood adjunct, Cymbalta 60 mg twice a day for mood/pain/anxiety, lithium 300 mg twice a day for mood adjunct/suicidal thoughts, melatonin 10 mg daily at bedtime for sleep. -Patient was counseled on the need for medication compliance and appropriate follow-up at mental health and also primary care for medical issues. Patient verbalized understanding and agreed. -Social work to help arrange for patient's transportation and senior care referral in [facility]. Social work also to arrange for patients follow up appointments with [facility] for psychiatric care along with follow up with primary care provider. -Patient counseled on abstaining from recreational drugs and marijuana and alcohol. Was informed/educated on the adverse effects on their physical and mental health. Patient verbally agreed and understood. Patient was offered substance abuse treatment however declined at this time. -Patient was instructed to return to the hospital or seek immediate medical care if their psychiatric or medical symptoms do worsen or reoccur. Allergies Allergy/AdvReac Type Severity Reaction Status Date / Time sulfamethoxazole Allergy Swelling Verified 08/21/22 16:23 [From Bactrim] trimethoprim [From Bactrim] Allergy Swelling Verified 08/21/22 16:23 venom-honey bee Allergy Unknown Verified 08/21/22 16:23 Laboratory Results WBC 5.3 k/uL (3.8-10.6) 08/19/22 07:49 RBC 3.97 m/uL (4.30-5.90) L 08/19/22 07:49 Hgb 13.0 gm/dL (13.0-17.5) 08/19/22 07:49 Hct 37.3 % (39.0-53.0) L 08/19/22 07:49 MCV 94.0 fL (80.0-100.0) 08/19/22 07:49 MCH 32.8 pg (25.0-35.0) 08/19/22 07:49 MCHC 34.9 g/dL (31.0-37.0) 08/19/22 07:49 RDW 13.6 % (11.5-15.5) 08/19/22 07:49 Plt Count 158 k/uL (150-450) 08/19/22 07:49 MPV 8.3 08/19/22 07:49 Neutrophils % 58 % 08/19/22 07:49 Lymphocytes % 24 % 08/19/22 07:49 Monocytes % 5 % 08/19/22 07:49 Eosinophils % 9 % 08/19/22 07:49 Basophils % 1 % 08/19/22 07:49 Neutrophils # 3.1 k/uL (1.3-7.7) 08/19/22 07:49 Lymphocytes # 1.3 k/uL (1.0-4.8) 08/19/22 07:49 Monocytes # 0.3 k/uL (0-1.0) 08/19/22 07:49 Eosinophils # 0.5 k/uL (0-0.7) 08/19/22 07:49 Basophils # 0.1 k/uL (0-0.2) 08/19/22 07:49 Sodium 137 mmol/L (137-145) 08/19/22 07:49 Potassium 3.6 mmol/L (3.5-5.1) 08/19/22 07:49 Chloride 107 mmol/L (98-107) 08/19/22 07:49 Carbon Dioxide 25 mmol/L (22-30) 08/19/22 07:49 Anion Gap 5 mmol/L 08/19/22 07:49 BUN <2 mg/dL (9-20) L 08/19/22 07:49 Creatinine 0.98 mg/dL (0.66-1.25) 08/19/22 07:49 Est GFR (CKD-EPI)AfAm >90 (>60 ml/min/1.73 sqM) 08/19/22 07:49 Est GFR (CKD-EPI)NonAf 81 (>60 ml/min/1.73 sqM) 08/19/22 07:49 Glucose 101 mg/dL (74-99) H 08/19/22 07:49 Calcium 8.3 mg/dL (8.4-10.2) L 08/19/22 07:49 Total Bilirubin 0.4 mg/dL (0.2-1.3) 08/19/22 07:49 AST 37 U/L (17-59) 08/19/22 07:49 ALT 40 U/L (4-49) 08/19/22 07:49 Alkaline Phosphatase 64 U/L (38-126) 08/19/22 07:49 Total Protein 6.2 g/dL (6.3-8.2) L 08/19/22 07:49 Albumin 3.2 g/dL (3.5-5.0) L 08/19/22 07:49 TSH 1.220 mIU/L (0.465-4.680) 08/19/22 07:49 Urine Color Dark Brown 08/17/22 20:26 Urine Appearance Clear (Clear) 08/17/22 20:26 Urine pH 5.5 (5.0-8.0) 08/17/22 20:26 Ur Specific [place] 1.021 (1.001-1.035) 08/17/22 20:26 Urine Protein Trace (Negative) H 08/17/22 20:26 Urine Glucose (UA) Negative (Negative) 08/17/22 20:26 Urine Ketones Negative (Negative) 08/17/22 20:26 Urine Blood Negative (Negative) 08/17/22 20:26 Urine Nitrite Negative (Negative) 08/17/22 20:26 Urine Bilirubin Negative (Negative) 08/17/22 20:26 Urine Urobilinogen <2.0 mg/dL (<2.0) 08/17/22 20:26 Ur Leukocyte Esterase Trace (Negative) H 08/17/22 20:26 Urine RBC 1 /hpf (0-5) 08/17/22 20:26 Urine WBC 10 /hpf (0-5) H 08/17/22 20:26 Urine Bacteria Rare /hpf (None) H 08/17/22 20:26 Urine Mucus Moderate /hpf (None) H 08/17/22 20:26 Urine Opiates Screen Not Detected (NotDetected) 08/17/22 20:26 Ur Oxycodone Screen Not Detected (NotDetected) 08/17/22 20:26 Urine Methadone Screen Not Detected (NotDetected) 08/17/22 20:26 Ur Propoxyphene Screen Not Detected (NotDetected) 08/17/22 20:26 Ur Barbiturates Screen Not Detected (NotDetected) 08/17/22 20:26 U Tricyclic Antidepress Detected (NotDetected) H 08/17/22 20:26 Ur Phencyclidine Scrn Not Detected (NotDetected) 08/17/22 20:26 Ur Amphetamines Screen Not Detected (NotDetected) 08/17/22 20:26 U Methamphetamines Scrn Not Detected (NotDetected) 08/17/22 20:26 U Benzodiazepines Scrn Not Detected (NotDetected) 08/17/22 20:26 [place] 0.4 mmol/L 08/19/22 07:49 Urine Cocaine Screen Not Detected (NotDetected) 08/17/22 20:26 U Marijuana (THC) Screen Detected (NotDetected) H 08/17/22 20:26 Coronavirus (PCR) Not Detected (Not Detectd) 08/17/22 20:15 Vital Signs Temp 98 F 08/24/22 06:34 Pulse 84 08/24/22 08:21 Resp 16 08/24/22 08:21 BP 101/61 08/24/22 08:21 Pulse Ox 95 08/24/22 06:34 FiO2 Patient Condition at Discharge: Stable Plan - Discharge Summary Discharge Rx Participant: No New Discharge Prescriptions: New DULoxetine HCL [Cymbalta] 60 mg PO BID 30 Days #60 cap Pantoprazole [Protonix] 40 mg PO AC-BID 30 Days #60 tab Mirtazapine [Remeron] 30 mg PO HS 30 Days #60 tab Acetaminophen Tab [Tylenol] 650 mg PO Q4HR PRN tab PRN Reason: Pain/Discomfort Melatonin 10 mg PO HS 30 Days #60 tab Continue Albuterol Sulfate [Albuterol Sulfate Hfa] 2 puff PO RT-Q6H PRN 30 Days #1 each PRN Reason: Shortness Of Breath dilTIAZem HCL 30 mg PO TID 30 Days #90 tab Apixaban [Eliquis] 5 mg PO BID 30 Days #60 tab Atorvastatin [Lipitor] 40 mg PO HS 30 Days #30 tab [place] Carbonate 300 mg PO BID 30 Days #60 cap Gabapentin [Neurontin] 400 mg PO TID 14 Days #42 cap QUEtiapine FUMARATE [SEROquel] 200 mg PO HS 30 Days #30 tab metOLazone [Zaroxolyn] 5 mg PO DAILY 30 Days #30 tab carvediloL [Coreg] 6.25 mg PO BID 30 Days #60 tab Tamsulosin HCl [Flomax] 0.4 mg PO HS 30 Days #30 cap Discontinued DULoxetine HCL [Cymbalta] 90 mg PO DAILY 30 Days cap HYDROcodone/APAP 5-325MG [[place] 5-325] 1 tab PO Q8H PRN PRN Reason: Pain Mirtazapine [Remeron] 15 mg PO HS 30 Days tab Discharge Medication List Acetaminophen Tab [Tylenol] 650 mg PO Q4HR PRN tab 08/24/22 [Rx] Albuterol Sulfate [Albuterol Sulfate Hfa] 2 puff PO RT-Q6H PRN 30 Days #1 each 08/24/22 [Rx] Apixaban [Eliquis] 5 mg PO BID 30 Days #60 tab 08/24/22 [Rx] Atorvastatin [Lipitor] 40 mg PO HS 30 Days #30 tab 08/24/22 [Rx] DULoxetine HCL [Cymbalta] 60 mg PO BID 30 Days #60 cap 08/24/22 [Rx] Gabapentin [Neurontin] 400 mg PO TID 14 Days #42 cap 08/24/22 [Rx] [place] Carbonate 300 mg PO BID 30 Days #60 cap 08/24/22 [Rx] Melatonin 10 mg PO HS 30 Days #60 tab 08/24/22 [Rx] Mirtazapine [Remeron] 30 mg PO HS 30 Days #60 tab 08/24/22 [Rx] Pantoprazole [Protonix] 40 mg PO AC-BID 30 Days #60 tab 08/24/22 [Rx] QUEtiapine FUMARATE [SEROquel] 200 mg PO HS 30 Days #30 tab 08/24/22 [Rx] Tamsulosin HCl [Flomax] 0.4 mg PO HS 30 Days #30 cap 08/24/22 [Rx] carvediloL [Coreg] 6.25 mg PO BID 30 Days #60 tab 08/24/22 [Rx] dilTIAZem HCL 30 mg PO TID 30 Days #90 tab 08/24/22 [Rx] metOLazone [Zaroxolyn] 5 mg PO DAILY 30 Days #30 tab 08/24/22 [Rx] Follow up Appointment(s)/Referral(s): [facility] [NON-STAFF] - 1 Week Activity/Diet/Wound Care/Special Instructions: Avoid the use of street drugs and alcohol. Take all prescriptions as prescribed. When you are in need of refills on your medications, please contact your medical provider and/or outpatient psychiatrist to have this done. Please go to scheduled outpatient appointment for aftercare treatment. If symptoms return or become worse, call the crisis line at and/or go to the nearest emergency room for evaluation Discharge Disposition: OTHER INSTITUTION NOT DEFINED
== END 2022-08-24 14:59 | disposition home or self-care (01) | DRG 885 ==
LOC: EC 14:28 → 3MHU 21:04
PROVIDERS: ADMIT Psychiatry & Neurology Psychiatry; ATTEND Psychiatry & Neurology Psychiatry
DX: F32.3 Major depressive disorder, single episode, severe with psychotic features (principal); K57.92 Diverticulitis of intestine, part unspecified, without perforation or abscess without bleeding; R45.851 Suicidal ideations; F12.10 Cannabis abuse, uncomplicated; Z71.51 Drug abuse counseling and surveillance of drug abuser; F17.210 Nicotine dependence, cigarettes, uncomplicated; F41.9 Anxiety disorder, unspecified; G47.00 Insomnia, unspecified; I50.9 Heart failure, unspecified; J44.9 Chronic obstructive pulmonary disease, unspecified; Z59.00 Homelessness unspecified; Z79.01 Long term (current) use of anticoagulants; Z79.899 Other long term (current) drug therapy; Z82.49 Family history of ischemic heart disease and other diseases of the circulatory system; Z83.3 Family history of diabetes mellitus; Z86.73 Personal history of transient ischemic attack (TIA), and cerebral infarction without residual deficits; Z95.0 Presence of cardiac pacemaker; Z71.89 Other specified counseling; Z20.822 Contact with and (suspected) exposure to COVID-19; Z28.21 Immunization not carried out because of patient refusal; R41.3 Other amnesia; Z95.1 Presence of aortocoronary bypass graft; Z95.5 Presence of coronary angioplasty implant and graft; Z88.2 Allergy status to sulfonamides; Z91.030 Bee allergy status
CPT/HCPCS: 80053; 80178; 80306; 81001; 82075; 84443; 85025; 87635